=== PATIENT | male | born 1930 | race Caucasian/White ===

== ENCOUNTER 2016-07-06 18:47 | Inpatient (IN) | payer MEDICARE ==
[2016-07-06] MEDS ORDERED: Acetaminophen TAB* 325 MG PO ONE (19:18)
[2016-07-06] MEDS ORDERED: NS 0.9% 1000 ML* 1,000 ML IV ONE (19:18)
[2016-07-06] MEDS ORDERED: Acetaminophen TAB* 325 MG ONE (19:31)
--- NOTE | 2016-07-06 20:27 | ED ---
Yusef Baca Billy, scribed for Donnie Sterling MD on 07/06/16 at 1930 . Influenza-Like Illness - HPI Summary HPI Summary: Patient is an 86 year-old male coming to [facility] with flu-like symptoms since this afternoon. Patient complains of general weakness, fatigue, dry cough, nausea, and vomiting. His daughter, who is in the room with him, also states that he had one isolated episode of loose stools. EMS reports that he had a temperature of 102.1F en route. Nothing has made his symptoms better or worse today. Patient is A&Ox3. He denies any urinary symptoms at this time. Patient was seen for an [place]ogram [place] [facility] [place]. - History of Current Complaint Chief Complaint: EDFluSymptoms Time Seen by Provider: 07/06/16 19:17 Hx Obtained From: Patient Onset/Duration: Gradual Onset, Lasting Hours, Still Present Severity: Moderate Associated Signs & Symptoms: Fever, Cough, Vomiting, Diarrhea - Allergy/Home Medications Allergies/Adverse Reactions: Allergies Allergy/AdvReac Type Severity Reaction Status Date / Time Allopurinol [From Zyloprim] Allergy Intermediate Rash Verified 09/08/15 06:54 Esomeprazole [From Nexium] Allergy Intermediate Rash Verified 09/08/15 06:54 Spironolactone Allergy Unknown Verified 09/08/15 06:54 Reaction Details PMH/Surg Hx/FS Hx/Imm Hx Endocrine/Hematology History: Reports: Hx Anticoagulant Therapy - PRADAXA, Hx Anemia - LOW IRON ON MEDICATION Denies: Hx Diabetes Cardiovascular History: Reports: Hx Auto Implanted Cardiovert Defib - BY DR BHANDARI/BERTHA [place] [facility] Hx Congestive Heart Failure - OXYGEN 2 LITERS VIA N/C CONTINOUSLY, Hx Coronary Artery Disease, Hx Pacemaker/ICD, Hx Valvular Heart Disease - TRICUSPID INSUFFICENCY, Other Cardiovascular Problems/Disorders - CHF Denies: Hx Hypertension, Hx Syncope - NEAR SYNCOPE Comment Only: Hx Hypotension - TACHY-FABRICIO SYNDROME, AFIB. Respiratory History: Reports: Other Respiratory Problems/Disorders - OXYGEN AT 2 LITERS VIA NASAL CANNULA R/T CHF GI History: Reports: Other GI Disorders - DOUDINAL ULCERS, ON PROTONIX History: Denies: Hx Renal Disease Musculoskeletal History: Reports: Hx Arthritis - BILATERAL HANDS AND FINGERS, Hx Orthopedic Injury - RIGHT FOOT BOOT Sensory History: Reports: Hx Contacts or Glasses Denies: Hx Hearing Aid Opthamlomology History: Reports: Hx Contacts or Glasses Neurological History: Reports: Hx Transient Ischemic Attacks (TIA) - Cancer History Cancer Type, 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) Hx Chemotherapy: Yes - ORAL Hx Radiation Therapy: Yes - MULTIPLE MYLOMA 2001 - Surgical History Surgery Procedure, Year, and Place: PACEMAKER/DEFIBULATOR Hx Anesthesia Reactions: No Infectious Disease History: Denies: Traveled Outside the [place] in Last 30 Days - Family History Known Family History: Negative: Cardiac Disease - Social History Alcohol Use: Daily Alcohol Amount: 1 BEER Substance Use Type: Reports: None Smoking Status (MU): Former Smoker Type: Cigarettes Amount Used/How Often: 2 PPD FOR ABOUT 10 YEARS Length of Time of Smoking/Using Tobacco: 10 YEARS Have You Smoked in the Last Year: No Review of Systems Positive: Fever Positive: Cough Positive: Vomiting, Diarrhea, Nausea Negative: dysuria, frequency All Other Systems Reviewed And Are Negative: Yes Physical Exam Triage Information Reviewed: Yes Vital Signs On Initial Exam: Initial Vital Signs Temp 102 F 07/06/16 19:21 Pulse 74 07/06/16 19:21 Resp 18 07/06/16 19:21 BP 128/46 07/06/16 19:21 Pulse Ox 95 07/06/16 19:21 Vital Signs Reviewed: Yes Appearance: Positive: No Pain Distress, Ill-Appearing Skin: Positive: Warm ENT: Positive: Pharynx normal Neck: Positive: Supple Respiratory/Lung Sounds: Positive: Clear to Auscultation, Breath Sounds Present Cardiovascular: Positive: RRR Abdomen Description: Positive: Soft Bowel Sounds: Positive: Present Musculoskeletal: Positive: Strength/ROM Intact Neurological: Positive: Sensory/Motor Intact, Alert, Oriented to Person Place, Time Psychiatric: Positive: Affect/Mood Appropriate Diagnostics - Vital Signs Vital Signs Temp Pulse Resp BP Pulse Ox 07/06/16 19:21 102 F 74 18 128/46 95 - Laboratory Result Diagrams: 07/06/16 20:20 07/06/16 20:20 Lab Statement: Any lab studies that have been ordered have been reviewed, and results considered in the medical decision making process. - Radiology CXR Radiology Interpretation Completed By: Radiologist - NO ACTIVE DISEASE. ENLARGED CORRECT SILHOUETTE WITH POSTSURGICAL CHANGE. Flu Symptom Course/Dx - Diagnoses Provider Diagnoses: Febrile illness, acute - Physician Notifications Discussed Care Of Patient With: Dr. Manzano (hospitalist) @ 2100: accepts admission Instructed by Provider To: Admit As Inpatient Discharge - Discharge Plan Condition: Fair Disposition: ADMITTED TO [facility] The documentation as recorded by the Yusef engle Billy accurately reflects the service I personally performed and the decisions made by me, Donnie Sterling MD.
--- NOTE | 2016-07-06 20:29 | RAD ---
INDICATION: Fever COMPARISON: Chest x-ray July 06, 2013 TECHNIQUE: PA and lateral dual-energy views were obtained. FINDINGS: Bones/Soft Tissues: There are no acute bony findings. There is a left-sided cardiac pacemaker/defibrillator Cardiomediastinal: The cardiac silhouette is mildly enlarged but unchanged. Lungs: There are no infiltrates. Pleura: There are no pleural effusions. Other: None IMPRESSION: NO ACTIVE DISEASE. ENLARGED CORRECT SILHOUETTE WITH POSTSURGICAL CHANGE.
[2016-07-06 20:33] LABS: Hematocrit 35 % (42-52); Hemoglobin 11.3 g/dl (14.0-18.0); Mean Corpuscular HGB Conc 33 g/dl (31-36); Mean Corpuscular Hemoglobin 31 pg (27-31); Mean Corpuscular Volume 95 fL (80-94); Mean Platelet Volume 9 um3 (7.4-10.4); Red Blood Count 3.67 10^6/ul (4.0-5.4); Red Cell Distribution Width 14 % (10.5-15); White Blood Count 21.2 10^3/ul (3.5-10.8)
[2016-07-06 20:50] LABS: Albumin 4.1 g/dL (3.2-5.2); BUN/Creatinine Ratio 19.7 (8-20); Calcium 9.6 mg/dL (8.6-10.3); Globulin 3.6 g/dL (2-4); Magnesium 1.5 mg/dL (1.9-2.7); Potassium 4.3 mmol/L (3.5-5.0); Total Bilirubin 1.1 mg/dL (0.2-1.0); Total Protein 7.7 g/dL (6.4-8.9)
[2016-07-06 21:07] LABS: TSH (Thyroid Stimulating Horm) 8.23 mcIU/mL (0.34-5.60)
--- NOTE | 2016-07-06 21:47 | HP ---
H&P (Free Text) History and Physical: PCP: Angie Santos MD Date/Time of Evaluation: 07/06/2016 2215 CC: fever, generalized weakness HPI: Mr Barton is an 86YO male HX PAOD who underwent L radial approach LLE angiography this AM via Adrianna Samayoa MD interventional cardiology. He was discharged in good health around noon arriving home after picking up a new prescription for atorvastatin 80mg daily. Family reports he was fine at that time. However, they found him to be febrile at 102F with generalized weakness and unsteady gait around 1700. Actual time of onset is unclear. He reports subjective F/C with rigors, mild nausea with small volume emesis, and a single loose stool, but denies cough, congestion, sore throat, earache, myalgias, headache, B/U/F of urine, black or bloody content to emesis/stool, or other issues. Evaluation confirms fever at 38.8C. WBCs are 21k (up from 9k yesterday) 92.5% neutrophils, stable CKD stg 3b, magnesium 1.5, & TSH 8.2. CXR is negative. PMedHx multiple myeloma (~10years in remission) AFIB on dabigatran CAD CKD stg 3b PAOD w/ planned angioplasty/stent to LLE next week for non-healing L plantar wound TIA BLE peripheral neuropathy GERD Allergies Allopurinol [From Zyloprim] Allergy (Intermediate, Verified 09/08/15 06:54) Rash Esomeprazole [From Nexium] Allergy (Intermediate, Verified 09/08/15 06:54) Rash Spironolactone Allergy (Verified 09/08/15 06:54) Unknown Reaction Details Ambulatory Orders Carvedilol TAB* [Coreg TAB*] 6.25 mg PO BID 01/18/13 Cholecalciferol [Vitamin D] 1,000 unit PO DAILY 01/18/13 Furosemide TAB* [Lasix TAB*] 40 mg PO 1200 01/18/13 Pantoprazole TAB (NF) [Protonix TAB (NF)] 40 mg PO QAM 01/18/13 Pregabalin CAP(*) [Lyrica CAP(*)] 75 mg PO TID 01/18/13 Iron Polysaccharide Complex- [Iferex 150 Forte 150-25-1 mg-Mcg-mg] 150 mg PO 1200 09/01/15 Potassium Chlor TAB* [Klor Con ER TAB 10 MEQ*] 10 meq PO DAILY 09/01/15 Diphenhydramine-Acetaminophen [Tylenol Pm Extra Strength 500-25 mg] 1 tab PO QPM 09/08/15 Atorvastatin* [Lipitor*] 80 mg PO DAILY #90 tab 07/06/16 Dabigatran CAP(NF) [Pradaxa CAP(NF)] 75 mg PO BID 07/06/16 PSurgHx pacerAICD placement L radial approach LLE angioplasty 07/06/2016 OU cataract extraction SocHx: quit smoking 2PPD ~50years ago w/ a >30PYHX; , lives alone; 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; full code status FamHx: positive for HTN, HLD ROS: as above, otherwise reviewed and all were negative Constitutional: NAD, normally developed, well-nourished elderly white male vitals: Vital Signs Temp 38.8 C 07/06/16 19:21 Pulse 74 07/06/16 21:00 Resp 18 07/06/16 19:21 BP 114/52 07/06/16 19:34 Pulse Ox 96 07/06/16 21:00 Intake & Output 07/05/16 07/06/16 07/06/16 23:59 11:59 23:59 Weight 68.039 kg HEENM: atraumatic; sclera/conjunctiva: non-icteric/clear; hearing: clinically intact; oropharynx: clear, mucosa moist Neck: soft tissue: non-tender; thyroid: normal Pulmonary: clear to auscultation bilaterally, good aeration, no accessory muscle use CV: RR/RR, normal S1S2, no carotid bruit, no jugular venous distention, 2+ B DP/ PT, no edema Abdominal: soft, non-distended, non-tender, no rebound/guarding/rigidity, normoactive bowel sounds, no hepatosplenomegaly or masses, no costovertebral angle tenderness Musculoskeletal: general: grossly intact; gait: unsteady Integumental: L foot with soft cast in place from wound clinic, after removal an ~7mm full thickness ulcer is noted at the distal 1st metatarsal without malodor, erythema, tenderness, induration, or other sign of active infection Psychiatric orientation: AA&O to PPS affect: calm mood: cooperative eye contact: good content: unreliable to timing of events memory: seems foggy regarding today's events responses: timely insight: fair Testing: Lab Results 07/06/16 07/06/16 07/06/16 Range/Units 20:20 20:20 20:20 WBC 21.2 H (3.5-10.8) 10^3/ul RBC 3.67 L (4.0-5.4) 10^6/ul Hgb 11.3 L (14.0-18.0) g/dl Hct 35 L (42-52) % MCV 95 H (80-94) fL MCH 31 (27-31) pg MCHC 33 (31-36) g/dl RDW 14 (10.5-15) % Plt Count 180 (150-450) 10^3/ul MPV 9 (7.4-10.4) um3 Neut % (Auto) 92.5 H (38-83) % Lymph % (Auto) 1.9 L (25-47) % Bosque % (Auto) 5.1 (1-9) % Eos % (Auto) 0.1 (0-6) % Baso % (Auto) 0.4 (0-2) % Absolute Neuts (auto) 19.6 H (1.5-7.7) 10^3/ul Absolute Lymphs (auto) 0.4 L (1.0-4.8) 10^3/ul Absolute Monos (auto) 1.1 H (0-0.8) 10^3/ul Absolute Eos (auto) 0 (0-0.6) 10^3/ul Absolute Basos (auto) 0.1 (0-0.2) 10^3/ul Absolute Nucleated RBC 0.01 10^3/ul Nucleated RBC % 0 Sodium 139 (133-145) mmol/L Potassium 4.3 (3.5-5.0) mmol/L Chloride 105 (101-111) mmol/L Carbon Dioxide 24 (22-32) mmol/L Anion Gap 10 (2-11) mmol/L BUN 31 H (6-24) mg/dL Creatinine 1.57 H (0.67-1.17) mg/dL Est GFR ( Amer) 54.0 (>60) Est GFR (Non-Af Amer) 42.0 (>60) BUN/Creatinine Ratio 19.7 (8-20) Glucose 109 H (70-100) mg/dL Lactic Acid 1.6 (0.5-2.0) mmol/L Calcium 9.6 (8.6-10.3) mg/dL Magnesium 1.5 L (1.9-2.7) mg/dL Total Bilirubin 1.10 H (0.2-1.0) mg/dL AST 20 (13-39) U/L ALT 13 (7-52) U/L Alkaline Phosphatase 63 (34-104) U/L Total Protein 7.7 (6.4-8.9) g/dL Albumin 4.1 (3.2-5.2) g/dL Globulin 3.6 (2-4) g/dL Albumin/Globulin Ratio 1.1 (1-3) TSH 8.23 H (0.34-5.60) mcIU/mL Influenza A (Rapid) (Negative) Influenza B (Rapid) (Negative) 07/06/16 Range/Units 21:21 WBC (3.5-10.8) 10^3/ul RBC (4.0-5.4) 10^6/ul Hgb (14.0-18.0) g/dl Hct (42-52) % MCV (80-94) fL MCH (27-31) pg MCHC (31-36) g/dl RDW (10.5-15) % Plt Count (150-450) 10^3/ul MPV (7.4-10.4) um3 Neut % (Auto) (38-83) % Lymph % (Auto) (25-47) % Bosque % (Auto) (1-9) % Eos % (Auto) (0-6) % Baso % (Auto) (0-2) % Absolute Neuts (auto) (1.5-7.7) 10^3/ul Absolute Lymphs (auto) (1.0-4.8) 10^3/ul Absolute Monos (auto) (0-0.8) 10^3/ul Absolute Eos (auto) (0-0.6) 10^3/ul Absolute Basos (auto) (0-0.2) 10^3/ul Absolute Nucleated RBC 10^3/ul Nucleated RBC % Sodium (133-145) mmol/L Potassium (3.5-5.0) mmol/L Chloride (101-111) mmol/L Carbon Dioxide (22-32) mmol/L Anion Gap (2-11) mmol/L BUN (6-24) mg/dL Creatinine (0.67-1.17) mg/dL Est GFR ( Amer) (>60) Est GFR (Non-Af Amer) (>60) BUN/Creatinine Ratio (8-20) Glucose (70-100) mg/dL Lactic Acid (0.5-2.0) mmol/L Calcium (8.6-10.3) mg/dL Magnesium (1.9-2.7) mg/dL Total Bilirubin (0.2-1.0) mg/dL AST (13-39) U/L ALT (7-52) U/L Alkaline Phosphatase (34-104) U/L Total Protein (6.4-8.9) g/dL Albumin (3.2-5.2) g/dL Globulin (2-4) g/dL Albumin/Globulin Ratio (1-3) TSH (0.34-5.60) mcIU/mL Influenza A (Rapid) Negative (Negative) Influenza B (Rapid) Negative (Negative) CXR, personally reviewed: IMPRESSION: NO ACTIVE DISEASE. ENLARGED CORRECT SILHOUETTE WITH POSTSURGICAL CHANGE. Impression: 86M presenting w/i 12hours of LLE angiography via L radial approach with fever 102F and generalized weakness, no source identified, flu negative DIAGNOSIS & PLAN Primary fever & generalized deconditioning : not meeting sepsis critieria : clinically appears reasonably good : will hold ABX and obtain CXs : ? non-influenza viral etiology : supplemental oxygen : IVFs : PT evaluation in AM 2nd borderline gait stability : supportive care Secondary multiple myeloma (~10years in remission) : no acute issues AFTIB : continue dabigatran & carvedilol CAD : continue carvedilol : hold furosemide in current setting CKD stg 3b : periodic monitoring particularly given dye-load today PAOD : planned angioplasty/stent to LLE next week for non-healing L plantar ulcer : continue atorvastatin : heart healthy diet BLE peripheral neuropathy : continue pregabalin GERD : continue pantoprazole Ambulatory Orders Dabigatran CAP(NF) [Pradaxa CAP(NF)] 75 mg PO BID 07/06/16 Admission Rational: observation for fever, generalized weakness, & leukocytosis DVTp: dabigatran Code Status: full HCP: daughter
[2016-07-06] MEDS ORDERED: Collagenase 250 MG/GM OINT* 30 GM TOPICAL ONE (23:00)
[2016-07-06] MEDS ORDERED: Ondansetron INJ* 2 MG/ML VIAL IV PRN (23:25)
[2016-07-06] MEDS ORDERED: Albuterol 2.5 MG/3 ML NEB.SOL* (0.083%) INH PRN (23:25)
[2016-07-06] MEDS ORDERED: traMADol TAB* 50 MG PO PRN (23:25)
[2016-07-06] MEDS ORDERED: CMCS: Melatonin (NF) 3 MG TAB PO PRN (23:25)
[2016-07-06] MEDS ORDERED: Magnesium Sulfate 2 GM IV* 2 GM/50 ML BAG IVPB ONE (23:25)
[2016-07-06] MEDS ORDERED: NS 0.9% 1000 ML* 1,000 ML IV SCH (23:30)
[2016-07-07] MEDS: Pregabalin CAP(*) 25 MG PO SCH ×4 (00:52→20:29)
[2016-07-07] MEDS: Acetaminophen TAB* 325 MG PO PRN ×2 (00:52→20:31)
[2016-07-07] MEDS: diPHENhydraMINE PO* 25 MG PO SCH ×2 (01:46→20:32)
[2016-07-07 06:56] LABS: Hematocrit 29 % (42-52); Hemoglobin 9.6 g/dl (14.0-18.0); Mean Corpuscular HGB Conc 33 g/dl (31-36); Mean Corpuscular Hemoglobin 31 pg (27-31); Mean Corpuscular Volume 94 fL (80-94); Mean Platelet Volume 8 um3 (7.4-10.4); Red Blood Count 3.08 10^6/ul (4.0-5.4); Red Cell Distribution Width 14 % (10.5-15); White Blood Count 13.8 10^3/ul (3.5-10.8)
[2016-07-07 07:12] LABS: BUN/Creatinine Ratio 20.9 (8-20); Calcium 8.7 mg/dL (8.6-10.3); EGFR African American 53.6 (>60); EGFR Non-African American 41.7 (>60); Potassium 4.1 mmol/L (3.5-5.0)
[2016-07-07] MEDS: Cholecalciferol TAB* 1000 UNITS PO SCH (07:59)
[2016-07-07] MEDS: Atorvastatin* 80 MG TAB PO SCH (07:59)
[2016-07-07] MEDS: CMCS: Pantoprazole TAB (NF) 40 MG TAB PO SCH (07:59)
[2016-07-07] MEDS ORDERED: Carvedilol TAB* 6.25 MG PO SCH (08:00)
[2016-07-07 08:26] LABS: Urine Bacteria Absent (Absent); Urine Bilirubin Negative (Negative); Urine Glucose Negative (Negative); Urine Nitrite Negative (Negative)
[2016-07-07] MEDS ORDERED: IRON POLYSACCHARIDE COMPLEX VI PO SCH (12:00)
--- NOTE | 2016-07-07 13:48 | PN ---
Subjective Date of Service: 07/07/16 Interval History: pt feels back to baseline. Rigors and fever from last night did not recur. Objective Active Medications: Acetaminophen (Tylenol Tab*) 650 mg PO Q6H PRN PRN Reason: FEVER/PAIN Last Admin: 07/07/16 00:52 Dose: 650 mg Albuterol (Ventolin 2.5 Mg/3 Ml Neb.Allison*) 2.5 mg INH Q2H PRN PRN Reason: SOB/WHEEZING Atorvastatin Calcium (Lipitor*) 80 mg PO DAILY [facility] Last Admin: 07/07/16 07:59 Dose: 80 mg Carvedilol (Coreg Tab*) 3.125 mg PO BID WITH MEALS [facility] Cholecalciferol (Vitamin D Tab*) 1,000 units PO DAILY [facility] Last Admin: 07/07/16 07:59 Dose: 1,000 units Dabigatran (Pradaxa Cap(Nf)) 75 mg PO BID [facility] Diphenhydramine HCl (Benadryl Po*) 25 mg PO BEDTIME [facility] Last Admin: 07/07/16 01:46 Dose: 25 mg Melatonin (Melatonin (Nf)) 3 mg PO BEDTIME PRN; Protocol PRN Reason: Sleep Ondansetron HCl (Zofran Inj*) 4 mg IV Q6H PRN PRN Reason: NAUSEA Pantoprazole Sodium (Protonix Tab (Nf)) 40 mg PO DAILY@0730 [facility] Last Admin: 07/07/16 07:59 Dose: 40 mg Pregabalin (Lyrica Cap(*)) 75 mg PO TID [facility] Last Admin: 07/07/16 07:59 Dose: 75 mg Tramadol HCl (Ultram*) 50 mg PO Q6H PRN PRN Reason: PAIN Vital Signs 07/06/16 07/06/16 07/06/16 22:25 23:00 23:07 Temperature 100 F Pulse Rate 65 64 Respiratory Rate Blood Pressure 101/47 (mmHg) O2 Sat by Pulse 96 98 Oximetry 07/07/16 07/07/16 07/07/16 00:30 00:43 00:52 Temperature 97.9 F 99 F Pulse Rate 60 Respiratory 18 18 Rate Blood Pressure 120/62 (mmHg) O2 Sat by Pulse 98 Oximetry 07/07/16 07/07/16 07/07/16 00:55 01:46 02:52 Temperature 97.9 F Pulse Rate 60 Respiratory 18 18 16 Rate Blood Pressure 120/62 (mmHg) O2 Sat by Pulse 98 Oximetry 07/07/16 07/07/16 07/07/16 03:46 04:27 05:03 Temperature 98.5 F Pulse Rate 60 Respiratory 16 16 Rate Blood Pressure 98/39 118/58 (mmHg) O2 Sat by Pulse 100 Oximetry 07/07/16 07/07/16 07/07/16 07:27 07:59 09:48 Temperature 97.6 F Pulse Rate 66 61 Respiratory 17 14 14 Rate Blood Pressure 122/39 (mmHg) O2 Sat by Pulse 100 98 Oximetry 07/07/16 09:59 Temperature Pulse Rate Respiratory 14 Rate Blood Pressure (mmHg) O2 Sat by Pulse Oximetry Oxygen Devices in Use Now: Nasal Cannula - at 2 L Appearance: 86 yo M in NAd, aAOx3 Eyes: No Scleral Icterus, PERRLA Ears/Nose/Mouth/Throat: NL Teeth, Lips, Gums, Mucous Membranes Moist Neck: NL Appearance and Movements; NL JVP, Trachea Midline Respiratory: Symmetrical Chest Expansion and Respiratory Effort, Clear to Auscultation Cardiovascular: RRR, - - 2/6 LUAN at apex Abdominal: NL Sounds; No Tenderness; No Distention, No Hepatosplenomegaly Lymphatic: No Cervical Adenopathy Extremities: No Edema, No Clubbing, Cyanosis, - - no palpable pedal pulses, feet warm, delayed cap refill b/l Skin: No Nodules or Sclerosis, - - R bottom of foot at athe base of R gret toe- ulcer at 2 cm in diam, crater like with slough at the bottom , stage 3, no discharge, no cellulitis noted Neurological: Alert and Oriented x 3, NL Muscle Strength and Tone Result Diagrams: 07/07/16 06:44 07/07/16 06:44 Assess/Plan/Problems-Billing Assessment: 86 yo M with h/o MM in remission, cardiomyopathy, on at 2 L continuously, A. fib on Pradaxa, pacer, CKD stage 3, PAD who had an angiogram performed by Dr. Samayoa on LLE via L radial approach on 07/06/16 and several hours later developed rigors, fever of 102, and generalized weakness. - Patient Problems (1) SIRS (systemic inflammatory response syndrome) Comment: so far no source of infection is identified. Blood cx will result after 9 PM today. Leukocytosis resolving spontaneusly without any antibiotics. D/w Dr. Samayoa - pt could have had an atypical allergic reaction to contrast. right now asymptomatic. Will need to stay one more night to confirm blood cx are negative prior to discharge. will also f/u with another CBC in aM. High procalcitonin level makes bacterial infection likely. R foot ulcer does not appear infected. (2) CKD (chronic kidney disease) stage 3, GFR 30-59 ml/min Comment: creat at baseline (3) H/O atrial fibrillation without current medication Comment: currently in regular rythm cont Pradaxa (4) PAD (peripheral artery disease) Comment: planned for angioplasty with Dr. Samayoa next week. (5) TSH elevation Comment: will check FT4 and T3 in AM to eval for hypothyroidism. (6) DVT prophylaxis Comment: Pradaxa Status and Disposition: OBV will be changed to inpatient. Pt needs another 24H of monitoring , awaiting a result of blood cx.
[2016-07-07] MEDS: Carvedilol TAB* 6.25 MG PO SCH (17:19)
[2016-07-07] MEDS ORDERED: DIPHENHYDRAMINE ACETAMINOPHEN PO SCH (18:00)
[2016-07-07] MEDS: CMC:Dabigatran CAP(NF) 75 MG CAP PO SCH (20:32)
[2016-07-08 05:59] LABS: Hematocrit 29 % (42-52); Hemoglobin 9.6 g/dl (14.0-18.0); Mean Corpuscular HGB Conc 33 g/dl (31-36); Mean Corpuscular Hemoglobin 31 pg (27-31); Mean Corpuscular Volume 95 fL (80-94); Mean Platelet Volume 9 um3 (7.4-10.4); Red Blood Count 3.06 10^6/ul (4.0-5.4); Red Cell Distribution Width 14 % (10.5-15); White Blood Count 12.5 10^3/ul (3.5-10.8)
[2016-07-08 06:29] LABS: Free T4 0.85 ng/dL (0.61-1.12)
[2016-07-08 07:57] LABS: Total T3 0.53 ng/mL (0.87-1.78)
[2016-07-08] MEDS: Carvedilol TAB* 6.25 MG PO SCH (08:28)
[2016-07-08] MEDS: CMCS: Pantoprazole TAB (NF) 40 MG TAB PO SCH (08:28)
[2016-07-08] MEDS: CMC:Dabigatran CAP(NF) 75 MG CAP PO SCH (08:29)
[2016-07-08] MEDS: Cholecalciferol TAB* 1000 UNITS PO SCH (08:29)
[2016-07-08] MEDS: Atorvastatin* 80 MG TAB PO SCH (08:29)
[2016-07-08] MEDS: Pregabalin CAP(*) 25 MG PO SCH (08:29)
[2016-07-08 08:33] VITALS: BP 128/56
--- NOTE | 2016-07-09 00:35 | DS ---
DISCHARGE SUMMARY: DATE OF ADMISSION: DATE OF DISCHARGE: 07/08/16 PRIMARY CARE PROVIDER: Dr. Santos. DISCHARGE DIAGNOSES: 1. Systemic inflammatory response syndrome with fever of 102 as well as marked leukocytosis of 21,000 with no infectious source identified, suspect an atypical reaction to IV contrast received on 07/06/16 during angiogram. 2. Mild hypothyroidism. SECONDARY DIAGNOSES: 1. History of multiple myeloma in remission. 2. History of atrial fibrillation, on Pradaxa. 3. History of coronary artery disease. 4. History of chronic kidney disease stage 3. 5. History of peripheral artery disease with planned angioplasty to left lower extremity next week by Dr. Samayoa. 6. History of transient ischemic attack. 7. History of bilateral peripheral neuropathy. 8. Gastroesophageal reflux disease. MEDICATIONS AT DISCHARGE: Include: 1. Coreg 6.25 mg b.i.d. 2. Vitamin D 1000 units daily. 3. Furosemide 40 mg daily. 4. Protonix 40 mg daily. 5. Lyrica 75 mg 3 times a day. 6. Niferex-150 Forte 150 mg daily. 7. Potassium chloride 10 mEq daily. 8. Tylenol PM extra strength 1 tab q.p.m. p.r.n. 9. Lipitor 80 mg daily. 10. Pradaxa 75 mg b.i.d. 11. Synthroid 25 microgram daily, which is a new medication. LABORATORY DATA AND STUDIES DURING THE HOSPITAL STAY: Included from 07/08/16, white blood cell count was 12.5, hemoglobin 9.6, hematocrit of 29, and platelets of 112. The patient's total white blood cell count was noted to be 21 ,000 on 07/06/16. On 07/07/16, sodium of 138, potassium of 4.1, chloride 109, carbon dioxide 24, BUN 33, creatinine 1.58. Thyroid function studies showed TSH total of 8.23, free T4 of 0.85, total T3 of 0.53. Microbiology studies showed blood cultures that were negative to the date of discharge. Flu test was negative on admission. Urinalysis was unremarkable apart from hyaline casts and trace protein. Portable chest x-ray obtained on admission, impression "no active disease, enlarged cardiac silhouette with post surgical change". HOSPITALIZATION COURSE: Bret Barton is an 86-year-old male with history of unknown healing ulcer on the sole of his right foot. The patient also is noted to have poor peripheral pulses and had an angiogram performed by Dr. Samayoa, which was diagnostic on 07/06/16. Post angiogram, he was discharged home and within a few hours, developed rigorous temperature of 102 degrees. He came in to the ER for evaluation where he was noted to have marked leukocytosis with 21,000 total white blood cells. The differential included 92% of neutrophils and 1.9 lymphocytes. His initial infectious workup yielded no positive results. His blood cultures were negative to date in 24 hours. His urinalysis was unremarkable. His chest x-ray was unremarkable either as mentioned above. The patient was not treated with antibiotics, but he did receive a liter of intravenous saline. His fever did not recur and his leukocytosis was slowly resolving as above mentioned with only supportive treatment. The patient felt back to baseline within 24 hours and had no further complaints apart from the chronic nonhealing ulcer on the bottom of his right foot. At this point, the suspicion is that patient most likely had an untypical reaction to the IV contrast. The case was discussed with Dr. Samayoa. The patient most likely will receive premedication for his therapeutic angiogram that is planned next week with Dr. Samayoa. PHYSICAL EXAMINATION AT THE TIME OF DISCHARGE: Blood pressure 128/56, heart rate of 71 and regular, respiratory rate of 16, oxygen saturation 99% on 2 L of oxygen nasal cannula, temperature 97.8. General: The patient is a very pleasant 86-year- old male, who is in no acute distress. Alert, awake, and oriented x3. HEENT: Head atraumatic, normocephalic. Eyes: Pupils equal, reactive to light and accommodation. Oropharynx clear. Mucosa moist. Neck: Supple, no JVD. No bruits bilaterally. Cardiovascular: Regular rate and rhythm with 2/6 systolic ejection murmur noted with auscultation of the apex. Respiratory: Clear to auscultation bilaterally. Abdomen: Soft, nontender. Bowel sounds present in all quadrants. Extremities: There are poorly palpable bilateral pedal pulses. The capillary refill is delayed. There is no clubbing and no cyanosis. Skin: On the bottom of the right foot, just at the base of the right great toe, the patient has an ulceration of approximately 2 cm in diameter, approximately half a cm deep, crater like with slough at the bottom. There is no cellulitis noted on the surrounding skin. Neuro Evaluation: Cranial nerves II through XII are grossly intact. Motor strength is 5/5 bilaterally. Speech clear. In addition to the above-mentioned, the patient's thyroid function studies indicated mild hypothyroidism. That was discussed with the patient and the patient agrees to starting low dose of thyroid supplementation. He is going to be started on Synthroid 25 micrograms daily. In regards to wound care monitoring, the patient is today scheduled for wound care center appointment with Dr. Jean-Baptiste to which he is going to go right after this discharge. Please note that this is a short summary of the patient's hospital stay. Please refer to further medical records for details. TIME SPENT: Approximately 40 minutes was spent on the patient's discharge. CC: Dr. Samayoa; Dr. Santos; Dr. Jean-Baptiste; Dr. Hernandez * [id number]/CPS #: [id number] [id number]
== END 2016-07-08 12:30 | disposition home or self-care (01) | DRG 872 ==
LOC: ED 18:47 → MED 22:24 → OBSVTOIN 07-07 19:24
PROVIDERS: ADMIT Hospitalist; ATTEND Internal Medicine
DX: R65.10 Systemic inflammatory response syndrome (SIRS) of non-infectious origin without acute organ dysfunction (principal); I50.9 Heart failure, unspecified; I48.91 Unspecified atrial fibrillation; Z99.81 Dependence on supplemental oxygen; K26.9 Duodenal ulcer, unspecified as acute or chronic, without hemorrhage or perforation; N18.3 Chronic kidney disease, stage 3 (moderate); G62.9 Polyneuropathy, unspecified; L97.519 Non-pressure chronic ulcer of other part of right foot with unspecified severity; C90.01 Multiple myeloma in remission; I25.10 Atherosclerotic heart disease of native coronary artery without angina pectoris; M13.842 Other specified arthritis, left hand; M13.841 Other specified arthritis, right hand; I77.9 Disorder of arteries and arterioles, unspecified; K21.9 Gastro-esophageal reflux disease without esophagitis; I73.9 Peripheral vascular disease, unspecified; E03.9 Hypothyroidism, unspecified; T50.8X5A Adverse effect of diagnostic agents, initial encounter; Z88.8 Allergy status to other drugs, medicaments and biological substances; Z95.810 Presence of automatic (implantable) cardiac defibrillator; Z86.73 Personal history of transient ischemic attack (TIA), and cerebral infarction without residual deficits; Z92.21 Personal history of antineoplastic chemotherapy; Z92.3 Personal history of irradiation; Z72.89 Other problems related to lifestyle; Z87.891 Personal history of nicotine dependence; Z82.49 Family history of ischemic heart disease and other diseases of the circulatory system; Z98.42 Cataract extraction status, left eye; Z98.41 Cataract extraction status, right eye; Z83.49 Family history of other endocrine, nutritional and metabolic diseases; Z79.01 Long term (current) use of anticoagulants
CPT/HCPCS: 36415; 71020; 80048; 80053; 81003; 81015; 82550; 83605; 83735; 84145; 84439; 84443; 84479; 85025; 85027; 87040; 87502; 94760; A9270-GY; C1887; G0378; G8978-GP-CI; G8979-GP-CI; G8980-GP-CI; J1644; J2250; J3010; J3475

== ENCOUNTER 2016-07-22 11:05 | Observation (INO) | payer MEDICARE ==
[2016-07-22] MEDS ORDERED: Clopidogrel TAB* 300 MG ONE (11:28)
[2016-07-22] MEDS ORDERED: methylPREDNISolone SOD SUCC* 125 MG 2 ML VIAL ONE (11:28)
[2016-07-22] MEDS ORDERED: diPHENhydraMINE IV* 50 MG/ML 1 ml VIAL (BENADRYL) ONE (11:29)
[2016-07-22] MEDS ORDERED: Acetylcysteine CAP (RENAL)* 600 MG PO ONE (12:00)
[2016-07-22 12:29] LABS: BUN/Creatinine Ratio 17.9 (8-20); Calcium 9.5 mg/dL (8.6-10.3); EGFR African American 59.2 (>60); Potassium 4.6 mmol/L (3.5-5.0)
[2016-07-22] MEDS ORDERED: methylPREDNISolone SOD SUCC* 40 MG/ML VIAL IV ONE (13:00)
[2016-07-22] MEDS ORDERED: Lidocaine 1% INJ* 10 MG/ML 30 ML SDV ONE (13:16)
[2016-07-22] MEDS ORDERED: fentaNYL* 50 MCG/ML 2 ML VIAL (100 MCG VIAL) ONE (13:16)
[2016-07-22] MEDS ORDERED: Midazolam* 1 MG/ML 5 ML VIAL (5 MG) ONE (13:16)
[2016-07-22] MEDS ORDERED: VERAPAMIL 2.5 MG/ML 4 ML VIAL ONE (13:16)
[2016-07-22] MEDS ORDERED: Heparin 2 UNITS/ML IVPREMIX* 2,000 ML IV ONE (13:16)
[2016-07-22] MEDS ORDERED: nitroGLYCERIN DRIP* 250 ML ONE (13:17)
[2016-07-22] MEDS ORDERED: Iodixanol* (CONTRAST) 320 MG/ML 100 ML SDV ONE (13:32)
[2016-07-22] MEDS ORDERED: Heparin(*) 1000 UNIT/ML 10 ML VIAL CATH LAB IV ONE (14:10)
[2016-07-22] MEDS ORDERED: NS 0.9% 1000 ML* 1,000 ML IV SCH (16:15)
[2016-07-22] MEDS: Aspirin Low Dose CHEW TAB* 81 MG PO SCH (17:17)
[2016-07-22] MEDS: Carvedilol TAB* 6.25 MG PO SCH (17:17)
[2016-07-22] MEDS ORDERED: Latanoprost 0.005%* 2.5 ml BTL BOTH EYES SCH (21:00)
[2016-07-22] MEDS: CMCS: Dabigatran CAP(NF) 75 MG CAP PO SCH (21:01)
[2016-07-22] MEDS: Pregabalin CAP(*) 25 MG PO SCH (21:01)
[2016-07-22] MEDS: Cephalexin CAP* 500 MG PO SCH (21:02)
[2016-07-22] MEDS ORDERED: Calcium Carbonate CHEW TAB* 500 MG (TUMS) PO PRN (22:12)
[2016-07-22] MEDS ORDERED: Al Hydrox/Mg Hydrox/Simet LIQ* 30 ML UDC PO PRN (22:13)
[2016-07-22] MEDS ORDERED: Al Hydrox/Mg Hydrox/Simet LIQ* 30 ML UDC ONE (22:16)
[2016-07-23] MEDS ORDERED: Levothyroxine TAB* 25 MCG TAB PO SCH (06:00)
[2016-07-23 07:01] LABS: Hematocrit 28 % (42-52); Hemoglobin 9.2 g/dl (14.0-18.0); Mean Corpuscular HGB Conc 33 g/dl (31-36); Mean Corpuscular Hemoglobin 31 pg (27-31); Mean Corpuscular Volume 94 fL (80-94); Mean Platelet Volume 9 um3 (7.4-10.4); Red Blood Count 2.95 10^6/ul (4.0-5.4); Red Cell Distribution Width 15 % (10.5-15); White Blood Count 12.8 10^3/ul (3.5-10.8)
--- NOTE | 2016-07-23 07:11 | CATH ---
CC: Dr. Arielle Santos; Dr. Rosa; Dr. Samayoa; [facility] [place] [facility] PERIPHERAL ANGIOGRAM AND INTERVENTIONAL REPORT: DATE OF PROCEDURE: 07/22/16 PRIMARY CARE PHYSICIAN: Dr. Arielle Santos. PROCEDURES: Left femoral artery access antegrade, orbital atherectomy, left posterior tibial and le ft lateral plantar arteries, angioplasty left posterior tibial 2.5 x 100, angioplasty left lateral p lantar 2 x 120, Angio-Seal left common femoral. HISTORY: An 86-year-old male with critical limb ischemia left foot with plantar ulcer, which has fa iled to heal. Diagnostic angiography 2 weeks ago demonstrated high-grade proximal left posterior ti bial stenosis as well as relatively short segment occlusion of the left anterior tibial with distal collateral reconstitution. Several hours post the angiogram, he had a febrile reaction with high wh ite count with negative cultures, without a rash. It was by exclusion diagnosed to be an atypical m anifestation of contrast reaction. For this procedure, he was premedicated with Benadryl and steroi ds. He also has CKD, stage 3, and was pretreated with volume loading and Mucomyst. PROCEDURE ACCESS: Left common femoral artery with ultrasound guidance sheath, 5 Zimbabwean x 55, which was advanced to the distal popliteal for distal angiography. Angiogram confirmed the same findings a s 2 weeks ago. The ViperWire was advanced easily through the posterior tibial stenosis, a 1.25-mm D iamondback orbital atherectomy catheter was introduced, two passes were performed at low speed in th e proximal posterior tibial, two passes at medium speed, two passes at high speed. A 2.5 x 100 ball oon was then stepwise inflated to 14 atmospheres for a total of 3 minutes. After angiographic asses sment, attention was focused on the foot. Imaging demonstrated severe diffuse stenosis of the latera l plantar branch. This was easily wired with the ViperWire, the orbital atherectomy catheter was ad vanced twice at low speed followed by a 2 x 120 mm balloon stepwise inflation up to nominal for 3 mi nutes. After final angiographic assessment, the left groin was sealed with Angio-Seal. MEDICATIONS: 1. Subcu lidocaine. 2. IV Versed. 3. IV fentanyl. 4. Heparin 6000 units, units. 5. IC nitroglycerin 300 mcg, 200 mcg as well as verapamil and nitroglycerin in the Viper solut ion. HEMODYNAMICS: Initial BP 122/70, final 140/67. Total contrast, Visipaque 80 mL. ANGIOGRAPHY: Sheath entry is in the common femoral above the bifurcation, there is no stenosis. It was redirected from the profunda into the SFA. Previous imaging showed no significant stenosis of the left SFA. He had no inflow disease. The popliteal has irregularity but no significant stenosis . The anterior tibial is again occluded few centimeters from the origin with approximately 80% occl usion, which fills distally by collaterals. The perineal has mild proximal stenosis, probably not s ignificant, the posterior tibial has tandem 80% to 90% proximal stenosis followed by a 50% stenosis before it reconstitutes. The below-knee vessels are heavily calcified. The anterior tibial distall y supplies the dorsalis pedis, which supplies the deep plantar. The peroneal ends at the ankle. Po sterior tibial distribution is seen better after the proximal PT was opened. However, the lateral p lantar is small and diffusely diseased, the medial plantar is small without focal stenosis. After o rbital atherectomy and angioplasty of the proximal posterior tibial, there is no significant residua l stenosis, there is improved antegrade flow. After orbital atherectomy and angioplasty of the late ral plantar as well as the distal posterior tibial and plantar followed by post-dilatation, the late ral plantar has improved luminal caliber and flow, the pedal loop via the deep plantar is patent, al though there may be some stenosis within the deep plantar itself. However, because of excellent per fusion to the forefoot, I did not balloon dilate the pedal loop. CONCLUSION: 1. Successful orbital atherectomy and angioplasty of the proximal left posterior tibial, distal pos terior tibial and plantar and lateral plantar branches with improved forefoot perfusion, intact peda l loop, although there may be residual stenosis within the deep plantar. If he fails to have wound healing, he is a candidate for revascularization of the proximal anterior tibial occlusion. 2. Successful Angio-Seal, left common femoral artery. [id number]/[facility] #: [id number]
[2016-07-23 07:16] LABS: BUN/Creatinine Ratio 21.2 (8-20); Calcium 8.8 mg/dL (8.6-10.3); EGFR African American 56.5 (>60); EGFR Non-African American 43.9 (>60); Potassium 4.4 mmol/L (3.5-5.0)
[2016-07-23 08:16] VITALS: BP 128/59
[2016-07-23] MEDS ORDERED: Potassium Chlor TAB* 10 MEQ TAB.ER PO SCH (08:30)
[2016-07-23] MEDS ORDERED: Clopidogrel TAB* 75 MG PO SCH (09:00)
[2016-07-23] MEDS ORDERED: CMCS: Pantoprazole TAB (NF) 40 MG TAB PO SCH (09:00)
[2016-07-23] MEDS ORDERED: Atorvastatin* 80 MG TAB PO SCH (09:00)
[2016-07-23] MEDS ORDERED: Latanoprost 0.005%* 2.5 ml BTL BOTH EYES SCH (09:00)
[2016-07-23] MEDS: Carvedilol TAB* 6.25 MG PO SCH (09:01)
[2016-07-23] MEDS: CMCS: Dabigatran CAP(NF) 75 MG CAP PO SCH (09:01)
[2016-07-23] MEDS: Cephalexin CAP* 500 MG PO SCH (09:01)
[2016-07-23] MEDS: Aspirin Low Dose CHEW TAB* 81 MG PO SCH (09:01)
[2016-07-23] MEDS: Pregabalin CAP(*) 25 MG PO SCH (09:02)
[2016-07-23] MEDS ORDERED: Furosemide TAB* 20 MG PO SCH (12:00)
--- NOTE | 2016-07-31 05:44 | DS ---
CC: Dr. Santos; Dr. Hernandez; Omaira Samayoa MD DISCHARGE SUMMARY: DATE OF ADMISSION: 07/22/16 DATE OF DISCHARGE: 07/23/16 PRIMARY: Arielle Santos MD [employer] DISPATCHER: Yasmine Hernandez MD DISCHARGE DIAGNOSES: 1. Peripheral arterial disease with critical limb ischemia, left foot. 2. Chronic kidney disease, stage 3. 3. Chronic atrial fibrillation. 4. Anticoagulation. 5. History of transient ischemic attack. PROCEDURES: Left common femoral artery antegrade access, orbital atherectomy, left posterior tibial , plantar and lateral plantar, angioplasty posterior tibial and plantar. CONDITION ON DISCHARGE: Stable. DISCHARGE INSTRUCTIONS: 1. Wound care, shower only for 3 days. 2. Activity, do not life more than 20 pounds for a few days. DISCHARGE MEDICATIONS: 1. Aspirin 81 mg daily. 2. Carvedilol 6.25 b.i.d. 3. Plavix 75 mg daily. 4. Lasix 20 mg 2 daily. 5. Potassium 10 mEq 2 daily. 6. Eye drops. 7. Synthroid 25 mcg daily. 8. Lipitor 10 mg daily. 9. Lyrica. 10. Zaroxolyn 25 mg 3 to 4 times per week. 11. Protonix 40 mg daily. 12. Iron. 13. Pradaxa 75 mg daily. FOLLOWUP: Followup with Dr. Santos as previously and Dr. Samayoa next week. HISTORY: An 86-year-old male with critical limb ischemia of left foot was a nonhealing ulcer on the wound of the foot. Diagnostic angiography demonstrated occlusion of the left anterior tibial as we ll as high-grade stenosis of the left posterior tibial with diffuse distal disease. LABORATORY DATA: His baseline creatinine is 1.45 on the 2nd. Postprocedure on 07/23/16, creatinine 1.51, at his baseline with normal electrolytes. HOSPITAL COURSE: He underwent outpatient angiography with left common femoral artery access with ul trasound guidance for revascularization of the left lower extremity for critical limb ischemia with a nonhealing wound on the left plantar surface. Intervention was performed using a 5-Nepali long sh eath, and orbital atherectomy 1.25 mm with 2 passes at low, 2 at medium, 2 at high speed in the prox imal posterior tibial, and 2 passes at low speed through the very distal posterior tibial, plantar, and lateral plantar branches. This was followed by balloon angioplasty with gradual slow inflation and prolonged inflation of the posterior tibial as well as the plantar branches. The former with a 2.5 mm diameter balloon, the lateral with a 2 mm diameter balloon. Angiographic result was excellen t with improver perfusion to the forefoot with an intact pedal loop, although there maybe some steno sis within the deep plantar artery. I elected not to open the occluded anterior tibial as with stra ight line flow to the sole of the foot, he has a very good chance of healing. If this fails to heal , he will be brought back for left anterior tibial revascularization. Because he had a febrile reac tion 6 hours after the diagnostic angiogram, attributed to an atypical contrast reaction by kaleigh locke, given he had negative cultures; he was kept overnight. This time he had absolutely no fever, no leukocytosis, and no issues. He was discharged the following morning to outpatient followup. [id number]/[facility] #: [id number]
== END 2016-07-23 10:45 | disposition home or self-care (01) ==
LOC: CHICATH 11:05 → SSU 16:10
PROVIDERS: ADMIT Internal Medicine Cardiovascular Disease; ATTEND Internal Medicine Cardiovascular Disease
DX: I73.9 Peripheral vascular disease, unspecified (principal); I50.42 Chronic combined systolic (congestive) and diastolic (congestive) heart failure; N18.3 Chronic kidney disease, stage 3 (moderate); I48.2 Chronic atrial fibrillation; Z79.01 Long term (current) use of anticoagulants; Z95.0 Presence of cardiac pacemaker; E78.00 Pure hypercholesterolemia, unspecified; I42.8 Other cardiomyopathies; I05.9 Rheumatic mitral valve disease, unspecified; I07.8 Other rheumatic tricuspid valve diseases; Z85.79 Personal history of other malignant neoplasms of lymphoid, hematopoietic and related tissues; Z79.899 Other long term (current) drug therapy; Z88.8 Allergy status to other drugs, medicaments and biological substances; Z91.041 Radiographic dye allergy status
CPT/HCPCS: 36415; 80048; 85025; 96360; 96361; A9270-GY; C1724; C1725; C1760; C1769; C1887; C1894; G0378; J1200; J1644; J2001; J2250; J2920; J2930; J3010

== ENCOUNTER 2016-10-13 17:57 | Inpatient (IN) | payer MEDICARE ==
[2016-10-13] MEDS ORDERED: Pantoprazole IV* 40 MG IV ONE (18:53)
[2016-10-13] MEDS ORDERED: Pantoprazole IV* 80 MG in NS 0.9% 250 ML* 250 ML IVPB SCH (19:00)
[2016-10-13] MEDS ORDERED: IDARUCIZUMAB* 2.5 GM/50 ML VIAL IV ONE (19:00)
[2016-10-13 19:53] LABS: Troponin I 0.03 ng/mL (<0.04)
[2016-10-13 20:46] LABS: Hematocrit 19 % (42-52); Mean Corpuscular HGB Conc 32 g/dl (31-36); Mean Corpuscular Hemoglobin 33 pg (27-31); Mean Corpuscular Volume 104 fL (80-94); Mean Platelet Volume 10 um3 (7.4-10.4); Red Blood Count 1.83 10^6/ul (4.0-5.4); Red Cell Distribution Width 23 % (10.5-15); White Blood Count 10.4 10^3/ul (3.5-10.8)
[2016-10-13 20:51] LABS: Comments Flag Yes
[2016-10-13 20:52] LABS: Add Diff/Slide Review? Slide Review Added; Hemoglobin 6.1 g/dl (14.0-18.0)
[2016-10-13 20:53] LABS: Albumin 3.5 g/dL (3.2-5.2); BUN/Creatinine Ratio 51.3 (8-20); Calcium 8.7 mg/dL (8.6-10.3); EGFR African American 55.2 (>60); EGFR Non-African American 42.9 (>60); Globulin 3.1 g/dL (2-4); Potassium 4.2 mmol/L (3.5-5.0); Total Bilirubin 0.9 mg/dL (0.2-1.0); Total Protein 6.6 g/dL (6.4-8.9)
[2016-10-13] MEDS ORDERED: Furosemide IV* 10 MG/ML 2 ML VIAL (20 MG) IV ONE (21:20)
[2016-10-13] MEDS ORDERED: Ondansetron INJ* 2 MG/ML VIAL IV PRN (21:20)
[2016-10-13] MEDS ORDERED: Acetaminophen TAB* 325 MG PO PRN (21:20)
[2016-10-13 21:37] LABS: Hypochromasia 1+; Macrocytosis 1+; Polychromasia 1+
[2016-10-13 21:38] LABS: Basophilic Stippling 1+
[2016-10-13 21:40] LABS: Add Path Review? YES; Schistocytes 1+
[2016-10-13] MEDS: Temazepam CAP* 15 MG PO PRN (23:57)
[2016-10-14] MEDS: Pantoprazole IV* 80 MG in NS 0.9% 250 ML* 250 ML IVPB SCH ×3 (01:50→08:52)
--- NOTE | 2016-10-14 01:57 | HP ---
HISTORY AND PHYSICAL: DATE OF ADMISSION: 10/13/16 PRIMARY CARE PROVIDER: Dr. Santos. ATTENDING PHYSICIAN WHILE IN THE HOSPITAL: Dr. Jatinder Manzano* (report being dictated by Kendall Lugo NP). PEARL DIGGER CHOPPER OPERATOR: Dr. Foote. CHIEF COMPLAINT: 1. Tarry stools. 2. Dyspnea on exertion. 3. Dizziness with position change. HISTORY OF PRESENT ILLNESS: Mr. Barton is an 86-year-old male patient. He has a history of multiple myeloma, atrial fibrillation, coronary artery disease , CKD. He also has a history of peripheral vascular disease, TIA, bilateral lower extremity neuropathies, CHF, and history of GERD. He comes into the ER today stating that over the last couple of weeks, he has noticed that he has been having some black tarry stools and discoloration. He has noticed that today, however, he was concerned because he tried to changes positions, get up from his bed this morning. He did not sleep all that well last night. He felt very faint when he changed position, he felt short of breath. He was concerned. He called his primary and because of the reported tarry stools, he was referred to the ER. He denied any chest pain. Denies any shortness of breath at rest. He says that he has been just feeling weak and tired. He says that he recently couple of weeks ago stopped taking his Protonix and he does have a history of a bleeding ulcer. He was evaluated in the ER. It was noted that his hemoglobin was 6.1. We were asked to evaluate for admission, and he was heme positive. PAST MEDICAL HISTORY: Significant for: 1. Multiple myeloma. 2. AFib. 3. CAD. 4. CKD stage 3. 5. Peripheral vascular disease. 6. TIA. 7. Bilateral lower extremity neuropathy. 8. GERD. 9. CHF, last known EF of 35%. PAST SURGICAL HISTORY: 1. He has had a pacemaker/AICD placement. 2. He has had a left lower extremity angioplasty just done with Dr. Samayoa in July of this year. 3. Cataract extraction. HOME MEDICATIONS: According to the list that they provided include: 1. Plavix 75 mg p.o. daily. 2. Lipitor 80 mg daily. 3. Aspirin 81 mg daily. 4. Vitamin D3 1000 units p.o. daily. 5. Coreg 6.25 mg p.o. b.i.d. 6. Synthroid 50 mcg p.o. daily. 7. Iron complex 150 mg p.o. daily. 8. Lasix 40 mg daily. 9. Pradaxa 75 mg p.o. b.i.d. 10. Lyrica 75 mg p.o. b.i.d. 11. Potassium 20 mEq p.o. daily. 12. Protonix 40 mg p.o. daily. ALLERGIES TO MEDICATIONS: Include ALLOPURINOL, NEXIUM, SPIRONOLACTONE and IV DYE. FAMILY HISTORY: Mother had a history of hypertension, diabetes. Father had a history of TB. SOCIAL HISTORY: He does drink 1 beer a day. He denies any smoking. He quit 50 years ago. Surrogate decision maker is his daughter. REVIEW OF SYSTEMS: There is no documented fever. He denied having any significant weight change. There was no double vision. He denies having any ear discharge. There was no rhinorrhea, no sore throat. No thyroid enlargement. Denies having any chest pain. There is no orthopnea. No dyspnea on exertion. There is no abdominal pain. No nausea, no vomiting. No dysuria, no frequency. No seizure. There was no loss of consciousness. No pruritus. No skin ulceration. Review of 14 systems completed and all others negative. PHYSICAL EXAMINATION GENERAL: Mr. Barton is an 86-year-old male patient, sitting in the ER stretcher. He does not appear to be in any acute distress. VITAL SIGNS: Initially blood pressure 99/34, blood pressure now is 128/56, pulse 68, respirations 18, O2 sat 100%, temperature 97.5. HEENT: Head is atraumatic, normocephalic. Eyes: EOMs are intact. Sclerae anicteric and not pale. Throat: Oral mucosa appears to be moist. No oropharyngeal erythema. NECK: Supple. LUNGS: Clear to auscultation. No wheezes, rales or rhonchi. HEART: Sounds S1, S2. Regular rate and rhythm. No murmurs, rubs or gallops. ABDOMEN: Soft, flat, nontender. Bowel sounds present. EXTREMITIES: Pulses were 2+ throughout. He is able to move all extremities with 5/5 strength. NEUROLOGIC: The patient is awake. He is alert. He is oriented x3. Tongue midline. Dispatcher [employer] Disposal were equal. No gross focal deficits. SKIN: Grossly intact. DIAGNOSTIC STUDIES/LABORATORY DATA: Labs today revealed WBC of 10.4, RBC is 1.83, hemoglobin 6, hematocrit 19, platelet count 190. INR was 2.07. PTT of 55.3. Sodium was 139, potassium 4.2, chloride of 105, bicarb 21, BUN 79, creatinine 1.54, glucose 110, calcium 8.7, total bili 0.9. AST 24, ALT 16, troponin 0.03. He did have an EKG obtained today, which shows a sinus rhythm artifact. It appears to be a left bundle branch block. It was reviewed to the previous EKG 4 years ago, appears to be similar. Old medical records were reviewed. ASSESSMENT AND PLAN: Mr. Barton is an 86-year-old male patient coming into the ER today with complaints of tarry stools and dizziness with position changes and evaluation known to be heme positive. In addition to this, also found to have a low H and H. He will be admitted under inpatient status for: 1. GI bleed. At this point, I did touch base with Dr. Foote. I tried calling Dr. Samayoa rather. Unfortunately, he did not pickup but my plan is to just go ahead, reverse the Plavix. He did not get a stent. I will go ahead and give him a unit of platelets. I will go ahead and he got Praxbind here in the ED. We will stop his aspirin, stop his Pradaxa, stop the Plavix. We will touch base with Dr. Samayoa in the morning. We will go ahead and give him 2 units of blood, put him on a PPI drip, 2 saline locks, n.p.o. after midnight for an EGD in the morning and I did put him in the ICU. I will give him a dose of Lasix between his units of blood. 2. Multiple myeloma. Follow with his primary and Dr. Arriola. 3. Atrial fibrillation. He appears to be in sinus rhythm currently. We will monitor. Hold the Pradaxa and follow. 4. Coronary artery disease. I am going to hold the aspirin. I am holding his beta-jorje as when he came in, his pressures were in the 90s. We will restart these when we are able. 5. Chronic kidney disease stage 3. His creatinine appears to be at baseline. 6. Peripheral vascular disease. Again, we will continue just the statin. When able, we will restart him on the Plavix, aspirin for this. 7. History of transient ischemic attack. Continue with secondary prevention with statin only. 8. Neuropathy. Continue with supportive care. 9. Gastroesophageal reflux disease. He will be on a PPI drip. 10. History of congestive heart failure. We need to monitor his Is and Os carefully and diurese him as needed. I am going to give Lasix between the units of blood and we will continue to follow. 11. Code status. He wishes to be a DNR. We will fill out a MOLST with him. 12. Fluids, electrolytes, and nutrition. Clear liquid diet, n.p.o. after midnight. TIME SPENT: Time spent on the admission was approximately 70 minutes; greater than half the time was spent [id number] with the patient obtaining my history and physical, other half the time spent going over the plan of care with the patient and implementing the plan of care. I did discuss the plan of care with my attending, Dr. Manzano; he is in agreement. KENDALL LUGO NP CC: Dr. Santos; Dr. Foote; Dr. Samayoa* [id number]/[facility] #: [id number] MTDD
[2016-10-14 04:03] LABS: Comments Flag Yes; Hematocrit 25 % (42-52)
[2016-10-14] MEDS: Levothyroxine TAB* 50 MCG TAB PO SCH (06:12)
[2016-10-14 06:40] LABS: Hematocrit 24 % (42-52); Hemoglobin 7.6 g/dl (14.0-18.0); Mean Corpuscular HGB Conc 32 g/dl (31-36); Mean Corpuscular Hemoglobin 31 pg (27-31); Mean Corpuscular Volume 98 fL (80-94); Mean Platelet Volume 9 um3 (7.4-10.4); Red Blood Count 2.45 10^6/ul (4.0-5.4); White Blood Count 15.3 10^3/ul (3.5-10.8)
[2016-10-14 06:41] LABS: Comments Flag Yes; Red Cell Distribution Width 24 % (10.5-15)
[2016-10-14 07:00] LABS: BUN/Creatinine Ratio 46.1 (8-20); Calcium 8.4 mg/dL (8.6-10.3); EGFR African American 56.1 (>60); EGFR Non-African American 43.6 (>60); Potassium 3.7 mmol/L (3.5-5.0)
[2016-10-14] MEDS: Pregabalin CAP(*) 25 MG PO SCH ×2 (08:28→21:15)
[2016-10-14] MEDS: Atorvastatin* 80 MG TAB PO SCH (08:28)
--- NOTE | 2016-10-14 09:00 | PN ---
Subjective Date of Service: 10/14/16 Interval History: Patient seen and examined at bedside. Denies CP, SOB, abd pain, n/v, fever/chills. Feels "a lot better" after receiving 2 unit PRBCs. Daughter at bedside. Patient s/p angioplasty in July with Dr. Samayoa - discussed with family. Will notify Dr. Samayoa of patient's hospitalization. Per family and records, no stents placed. Patient also a patient of wound clinic - consult pending. Family History: Unchanged from Admission Social History: Unchanged from Admission Past Medical History: Unchanged from Admission Objective Active Medications: Acetaminophen (Tylenol Tab*) 650 mg PO Q4H PRN PRN Reason: FEVER/PAIN Atorvastatin Calcium (Lipitor*) 80 mg PO DAILY [facility] Last Admin: 10/14/16 08:28 Dose: 80 mg Pantoprazole Sodium 80 mg/ (Sodium Chloride) 250 mls @ 25 mls/hr IVPB Q10H [facility] Last Admin: 10/14/16 08:52 Dose: Not Given Levothyroxine Sodium (Synthroid Tab*) 50 mcg PO DAILY@0600 [facility] Last Admin: 10/14/16 06:12 Dose: Not Given Ondansetron HCl (Zofran Inj*) 4 mg IV Q6H PRN PRN Reason: NAUSEA Pregabalin (Lyrica Cap(*)) 75 mg PO BID [facility] Last Admin: 10/14/16 08:28 Dose: 75 mg Temazepam (Restoril Cap*) 15 mg PO BEDTIME PRN PRN Reason: INSOMNIA Last Admin: 10/13/16 23:57 Dose: 15 mg Vital Signs 10/13/16 10/13/16 10/13/16 21:30 21:36 21:52 Temperature Pulse Rate Respiratory 17 19 18 Rate Blood Pressure 116/44 124/46 (mmHg) O2 Sat by Pulse Oximetry 10/13/16 10/13/16 10/13/16 21:53 22:00 22:26 Temperature 98.6 F Pulse Rate 65 Respiratory 16 20 15 Rate Blood Pressure 123/50 119/47 129/47 (mmHg) O2 Sat by Pulse 98 Oximetry 10/13/16 10/13/16 10/13/16 22:30 22:59 23:00 Temperature Pulse Rate 63 Respiratory 17 18 15 Rate Blood Pressure 121/49 117/42 129/47 (mmHg) O2 Sat by Pulse 99 Oximetry 10/13/16 10/13/16 10/13/16 23:15 23:30 23:45 Temperature Pulse Rate 56 65 64 Respiratory 18 14 15 Rate Blood Pressure 129/45 112/38 122/46 (mmHg) O2 Sat by Pulse 97 100 100 Oximetry 10/14/16 10/14/16 10/14/16 00:00 00:01 00:35 Temperature Pulse Rate 64 65 61 Respiratory 16 15 15 Rate Blood Pressure 130/64 130/64 (mmHg) O2 Sat by Pulse 100 100 100 Oximetry 10/14/16 10/14/16 10/14/16 00:45 00:52 01:00 Temperature Pulse Rate 62 66 61 Respiratory 16 18 17 Rate Blood Pressure 121/48 127/52 (mmHg) O2 Sat by Pulse 98 74 100 Oximetry 10/14/16 10/14/16 10/14/16 01:15 01:30 01:49 Temperature Pulse Rate 60 60 Respiratory 14 20 13 Rate Blood Pressure 108/41 119/45 (mmHg) O2 Sat by Pulse 100 99 Oximetry 10/14/16 10/14/16 10/14/16 02:00 03:00 03:10 Temperature Pulse Rate 60 59 Respiratory 13 14 Rate Blood Pressure 130/58 90/43 (mmHg) O2 Sat by Pulse 100 100 Oximetry 10/14/16 10/14/16 10/14/16 03:18 03:35 03:59 Temperature 99.1 F Pulse Rate 64 61 Respiratory 17 15 Rate Blood Pressure 129/53 137/58 (mmHg) O2 Sat by Pulse 99 100 Oximetry 10/14/16 10/14/16 10/14/16 04:00 04:18 04:24 Temperature Pulse Rate 60 62 60 Respiratory 15 21 21 Rate Blood Pressure 107/44 128/60 (mmHg) O2 Sat by Pulse 100 100 100 Oximetry 10/14/16 10/14/16 10/14/16 04:57 04:58 05:42 Temperature Pulse Rate 60 Respiratory 14 15 13 Rate Blood Pressure (mmHg) O2 Sat by Pulse 100 Oximetry 10/14/16 10/14/16 10/14/16 06:00 06:11 07:00 Temperature Pulse Rate 59 59 60 Respiratory 13 14 21 Rate Blood Pressure 103/35 114/49 130/56 (mmHg) O2 Sat by Pulse 100 100 100 Oximetry 10/14/16 07:22 Temperature 97.6 F Pulse Rate Respiratory Rate Blood Pressure (mmHg) O2 Sat by Pulse Oximetry Oxygen Devices in Use Now: None Appearance: Elderly male, sitting up in bed, NAD Eyes: PERRLA Ears/Nose/Mouth/Throat: Mucous Membranes Moist Neck: NL Appearance and Movements; NL JVP Respiratory: Symmetrical Chest Expansion and Respiratory Effort, Clear to Auscultation Cardiovascular: RRR - S1, S2, systolic murmur Abdominal: NL Sounds; No Tenderness; No Distention Extremities: No Edema Skin: - - Left foot dressing c/d/i - did not unwrap, will wait for wound care consult. Neurological: Alert and Oriented x 3 Lines/Tubes/Other Access: Clean, Dry and Intact Peripheral IV Result Diagrams: 10/14/16 06:30 10/14/16 06:30 Microbiology and Other Data: Microbiology 10/13/16 23:50 Nasal Screen MRSA (PCR)(MELA) - Final Nasal Mrsa Negative Assess/Plan/Problems-Billing Assessment: Mr. Montesinos is an 86 yo male with a PMH of multiple myeloma, atrial fibrillation , CAD, CKD stage 3, PVD, TIA, BLE neuropathy, CHF, and GERD who presented to the ED on 10/13 with concern for tarry stools, dizziness, and dyspnea with exertion; he was found to be anemic and had a positive occult stool. - Patient Problems (1) Gastrointestinal bleed Code(s): K92.2 - GASTROINTESTINAL HEMORRHAGE, UNSPECIFIED Comment: S/p 2 units PRBC Continue to trend HH Patient received Praxbind reversal for dabigatran in the ED. ASA and Plavix on hold. Appreciate GI consult. Endoscopy planned for today. Continue pantoprazole gtt and IVF. (2) Atrial fibrillation Code(s): I48.91 - UNSPECIFIED ATRIAL FIBRILLATION Comment: Currently in SR. Pradaxa held for acute GIB. Carvedilol held for hypotension. Resume when hemodynamically stable. (3) CKD (chronic kidney disease) stage 3, GFR 30-59 ml/min Code(s): N18.3 - CHRONIC KIDNEY DISEASE, STAGE 3 (MODERATE) Comment: Creatinine within baseline. (4) Chronic wound of extremity Code(s): QUI7812 - Comment: S/p angioplasty in July 2016 Wound clinic patient - appreciate inpatient consult Dressing changes per wound care (5) Peripheral vascular disease Code(s): I73.9 - PERIPHERAL VASCULAR DISEASE, UNSPECIFIED Comment: Dr. Samayoa notified of patient's admission. Continue to hold ASA and clopidogrel with acute bleed. Continue statin. (6) CAD (coronary artery disease) Code(s): I25.10 - ATHSCL HEART DISEASE OF [place] CORONARY ARTERY W/O ANG PCTRS Comment: Continue statin. Resume carvediolol when hemodynamically stable. Continue to hold ASA in acute GIB. (7) CHF (congestive heart failure) Code(s): I50.9 - HEART FAILURE, UNSPECIFIED Comment: Continue to closely monitor I/O and daily weights. Patient's last recorded EF 35% in 2011. Resume beta jorje and furosemide when hemodynamically stable. (8) Peripheral neuropathy Code(s): G62.9 - POLYNEUROPATHY, UNSPECIFIED Comment: Continue pregabalin. (9) GERD (gastroesophageal reflux disease) Code(s): K21.9 - GASTRO-ESOPHAGEAL REFLUX DISEASE WITHOUT ESOPHAGITIS Comment : Patient is on pantoprazole gtt. (10) Multiple myeloma Code(s): C90.00 - MULTIPLE MYELOMA NOT HAVING ACHIEVED REMISSION Comment: Continue outpatient f/u with oncology. (11) DVT prophylaxis Code(s): MZP0924 - Comment: Contraindicated in acute hemorrhage SCDs Status and Disposition: Inpatient admission. D/c to home when medically stable.
[2016-10-14] MEDS ORDERED: Meperidine SYRINGE* 50 MG/ML ONE (11:19)
[2016-10-14] MEDS ORDERED: Midazolam* 1 MG/ML 10 ML VIAL (10 MG) ONE (11:19)
[2016-10-14 12:46] LABS: Hematocrit 23 % (42-52); Hemoglobin 7.6 g/dl (14.0-18.0)
[2016-10-14 12:51] LABS: Comments Flag Yes
[2016-10-14 18:28] LABS: Hematocrit 24 % (42-52); Hemoglobin 7.5 g/dl (14.0-18.0)
[2016-10-14 18:30] LABS: Comments Flag Yes
[2016-10-14] MEDS: Temazepam CAP* 15 MG PO PRN (21:15)
[2016-10-14] MEDS: CMC: Pantoprazole TAB (NF) 40 MG TAB PO SCH (21:15)
[2016-10-15 00:01] LABS: Hematocrit 24 % (42-52); Hemoglobin 7.6 g/dl (14.0-18.0)
[2016-10-15 00:37] LABS: Comments Flag Yes
--- NOTE | 2016-10-15 01:22 | PRO ---
PROCEDURE REPORT: DATE OF PROCEDURE: 10/14/16 - inpatient, room #417-02 REQUESTING PROVIDER: Sherif Lugo NP PROCEDURE: EGD. INDICATION: Melena. MEDICATIONS GIVEN: 1. 25 mg IV Demerol. 2. 2 mg IV Versed. DESCRIPTION OF PROCEDURE: After the EGD procedure, including the risks, benefits, and alternatives, not limited to perforation, surgery, and/or were explained to Mr. Barton, written consent was then obtained. IV medication was given and a bite-block was placed between the teeth. An Olympus gastroscope was then inserted into the patient's mouth, advanced down the esophagus, into the stomach, into the distal duodenum. In the esophagus, at the GE junction, the Z-line was intact. No erosive esophagitis, stricture, or ring was seen. The scope was advanced through a widely patent GE junction into the body of the stomach. Retroflex view was unremarkable except for gastritis. Forward view was also revealed pangastritis. There was no active bleeding seen. I did take a very careful and through look for any ulcers. I could not find any ulcers. The scope was advanced through a widely patent pylorus, into the duodenal bulb. Duodenal bulb was slightly deformed, it was more narrow than normal. I was able to make it down to the second and third portions of the duodenum, there was bile down there. No bleeding was seen. No ulcers were seen in the duodenal bulb. The scope was then withdrawn from the patient. He tolerated the procedure well. A biopsy was obtained for H. pylori. IMPRESSION: 1. Complete upper endoscopy into the distal duodenum with biopsies. 2. Pangastritis, most likely cause for his melena. 3. Helicobacter pylori, biopsy is pending. 4. If the Helicobacter pylori is negative, I really do not have a good indication for his gastritis. 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 His LFTs were unremarkable and his most recent CT did not reveal any evidence of cirrhosis. I do wonder if he bled because he had been on the pantoprazole which was stopped and then he had Plavix and aspirin added into his regimen. I think he needs to be on pantoprazole lifelong and we need to consider whether or not he should continue on his Plavix and aspirin. CC: Dr. Arielle Santos* [id number]/[facility] #: [id number] NINA
--- NOTE | 2016-10-15 01:31 | CONS ---
CONSULTATION REPORT: DATE OF CONSULT: 10/14/16 REQUESTING PHYSICIAN: Sherif Lugo NP INDICATION: Melena. NARRATIVE: Mr. Barton is a very pleasant 86-year-old gentleman, who is on aspirin, Plavix, and Pradaxa, who has had a remote history of peptic ulcer disease in the . The patient states he has been having black and tarry stools for the past 2 weeks. Yesterday, he was weak and dizzy, came to the emergency room, was found to have a hemoglobin of 6.1. He denies any abdominal pain. He did have a bowel movement this morning, does not know the color. PAST MEDICAL HISTORY: Significant for AFib, coronary artery disease, chronic kidney disease, peripheral vascular disease, CHF, GERD, multiple myeloma. PAST SURGICAL HISTORY: Pacemaker ICD. He has numerous stents. MEDICATIONS: Include: 1. Plavix. 2. Aspirin. 3. Lipitor. 4. Coreg. 5. Synthroid. 6. Lasix. 7. Pradaxa. 8. Lyrica. 9. Potassium. 10. Protonix. ALLERGIES: To ALLOPURINOL, NEXIUM, SPIRONOLACTONE, and IV DYE. FAMILY HISTORY: Hypertension, diabetes, TB. SOCIAL HISTORY: Continues to drink alcohol. No smoking. REVIEW OF SYSTEMS: 12 systems were reviewed and other than that mentioned in the HPI were unremarkable. PHYSICAL EXAM: Temperature is 98.7, blood pressure 119/52, pulse is 60, O2 sats are 99%. General: Chronically ill-appearing male, appears his stated age of 86. Alert, oriented, pleasant, and fluent. HEENT: Mucous membranes are moist without lesions, ulcers or exudate. Neck is supple. Trachea is midline. Head is normocephalic, atraumatic. Heart: Irregular rate and rhythm. Lungs : Clear to auscultation. Abdomen: Positive bowel sounds, soft, nontender, nondistended. No hepatosplenomegaly, masses, rebound, or guarding. Skin is warm and dry. DIAGNOSTIC STUDIES/LAB DATA: Labs reveal a BUN of 70, creatinine is 1.52, hemoglobin is 7.6 down from 8, up from 6.1. He has received 2 units of blood so far. ASSESSMENT AND PLAN: This is a pleasant 86-year-old gentleman with a history of peptic ulcer disease, on aspirin, Plavix, and Pradaxa, who presents with anemia and melena. He appears to be having upper GI bleed, likely a peptic ulcer disease. He is on IV Protonix. He has 2 large bore IVs. I will make arrangements for his EGD today. [id number]/[facility] #: [id number] NINA
[2016-10-15] MEDS ORDERED: NS 0.9% 250 ML* 250 ML IVPB ONE (05:00)
[2016-10-15] MEDS: Levothyroxine TAB* 50 MCG TAB PO SCH (05:14)
[2016-10-15 05:45] LABS: Hematocrit 22 % (42-52); Hemoglobin 7.1 g/dl (14.0-18.0); Mean Corpuscular HGB Conc 33 g/dl (31-36); Mean Corpuscular Hemoglobin 32 pg (27-31); Mean Corpuscular Volume 97 fL (80-94); Mean Platelet Volume 9 um3 (7.4-10.4); Red Blood Count 2.24 10^6/ul (4.0-5.4)
[2016-10-15 05:46] LABS: Comments Flag Yes; Red Cell Distribution Width 24 % (10.5-15)
[2016-10-15 05:57] LABS: BUN/Creatinine Ratio 38.6 (8-20); EGFR African American 59.2 (>60); Potassium 3.6 mmol/L (3.5-5.0)
[2016-10-15] MEDS: CMC: Pantoprazole TAB (NF) 40 MG TAB PO SCH ×2 (07:38→21:43)
[2016-10-15] MEDS: Pregabalin CAP(*) 25 MG PO SCH ×2 (07:38→21:35)
[2016-10-15] MEDS: Atorvastatin* 80 MG TAB PO SCH (07:38)
[2016-10-15 11:18] LABS: Comments Flag Yes; Hematocrit 25 % (42-52); Hemoglobin 8.1 g/dl (14.0-18.0)
--- NOTE | 2016-10-15 11:30 | PN ---
Subjective Date of Service: 10/15/16 Interval History: Patient seen and examined at bedside. He reports feeling well, denies weakness or shortness of breath. Denies chest pain, abd pain, n/v. Denies any black tarry stools, bloody stools. Family History: Unchanged from Admission Social History: Unchanged from Admission Past Medical History: Unchanged from Admission Objective Active Medications: Acetaminophen (Tylenol Tab*) 650 mg PO Q4H PRN PRN Reason: FEVER/PAIN Atorvastatin Calcium (Lipitor*) 80 mg PO DAILY [facility] Last Admin: 10/15/16 07:38 Dose: 80 mg Levothyroxine Sodium (Synthroid Tab*) 50 mcg PO DAILY@0600 [facility] Last Admin: 10/15/16 05:14 Dose: 50 mcg Ondansetron HCl (Zofran Inj*) 4 mg IV Q6H PRN PRN Reason: NAUSEA Pantoprazole Sodium (Protonix Tab (Nf)) 40 mg PO BID [facility] Last Admin: 10/15/16 07:38 Dose: 40 mg Pregabalin (Lyrica Cap(*)) 75 mg PO BID [facility] Last Admin: 10/15/16 07:38 Dose: 75 mg Temazepam (Restoril Cap*) 15 mg PO BEDTIME PRN PRN Reason: INSOMNIA Last Admin: 10/14/16 21:15 Dose: 15 mg Vital Signs 10/14/16 10/14/16 10/14/16 12:00 13:00 13:50 Temperature 98.7 F Pulse Rate 59 60 66 Respiratory 19 17 19 Rate Blood Pressure 105/41 119/52 110/40 (mmHg) O2 Sat by Pulse 100 99 100 Oximetry 10/14/16 10/14/16 10/14/16 13:55 14:00 14:05 Temperature Pulse Rate 61 62 64 Respiratory 16 12 13 Rate Blood Pressure 108/36 110/41 113/40 (mmHg) O2 Sat by Pulse 100 94 99 Oximetry 10/14/16 10/14/16 10/14/16 14:15 14:20 14:25 Temperature Pulse Rate 61 60 Respiratory 20 22 Rate Blood Pressure 99/34 103/38 101/37 (mmHg) O2 Sat by Pulse 98 95 Oximetry 10/14/16 10/14/16 10/14/16 14:30 14:35 14:40 Temperature Pulse Rate 60 59 60 Respiratory 19 23 18 Rate Blood Pressure 102/38 102/38 101/41 (mmHg) O2 Sat by Pulse 95 95 96 Oximetry 10/14/16 10/14/16 10/14/16 14:45 14:50 14:55 Temperature Pulse Rate 60 60 60 Respiratory 21 23 24 Rate Blood Pressure 108/38 106/41 103/39 (mmHg) O2 Sat by Pulse 97 96 95 Oximetry 10/14/16 10/14/16 10/14/16 15:00 15:05 15:10 Temperature Pulse Rate 60 60 60 Respiratory 23 23 24 Rate Blood Pressure 107/43 107/43 112/42 (mmHg) O2 Sat by Pulse 95 96 95 Oximetry 10/14/16 10/14/16 10/14/16 15:34 16:00 17:00 Temperature 98.1 F Pulse Rate 60 63 Respiratory 22 17 Rate Blood Pressure 118/50 142/53 (mmHg) O2 Sat by Pulse 97 100 Oximetry 10/14/16 10/14/16 10/14/16 17:03 17:46 17:58 Temperature 97.4 F 97.4 F Pulse Rate 62 62 Respiratory 18 18 Rate Blood Pressure 117/79 117/79 (mmHg) O2 Sat by Pulse 97 100 100 Oximetry 10/14/16 10/14/16 10/14/16 19:34 19:36 20:00 Temperature 97.3 F Pulse Rate 125 Respiratory 18 16 16 Rate Blood Pressure 118/49 (mmHg) O2 Sat by Pulse 100 Oximetry 10/14/16 10/14/16 10/14/16 21:15 23:14 23:15 Temperature 97.4 F Pulse Rate 61 Respiratory 18 16 18 Rate Blood Pressure 102/38 (mmHg) O2 Sat by Pulse 99 Oximetry 10/15/16 10/15/16 10/15/16 03:55 03:59 07:29 Temperature 97.8 F 97.5 F Pulse Rate 59 63 Respiratory 16 18 Rate Blood Pressure 90/31 92/40 95/34 (mmHg) O2 Sat by Pulse 98 91 Oximetry 10/15/16 10/15/16 10/15/16 07:31 07:38 07:51 Temperature Pulse Rate 64 Respiratory 18 18 Rate Blood Pressure 113/48 (mmHg) O2 Sat by Pulse Oximetry 10/15/16 09:38 Temperature Pulse Rate Respiratory 18 Rate Blood Pressure (mmHg) O2 Sat by Pulse Oximetry Oxygen Devices in Use Now: None Appearance: Elderly male, sitting in bed, NAD Eyes: PERRLA Ears/Nose/Mouth/Throat: Mucous Membranes Moist Neck: NL Appearance and Movements; NL JVP Respiratory: Symmetrical Chest Expansion and Respiratory Effort, Clear to Auscultation Cardiovascular: NL Sounds; No Murmurs; No JVD, RRR Abdominal: NL Sounds; No Tenderness; No Distention Extremities: - - LLE wound dressing c/d/i Neurological: Alert and Oriented x 3, NL Muscle Strength and Tone Lines/Tubes/Other Access: Clean, Dry and Intact Peripheral IV Nutrition: Taking PO's Result Diagrams: 10/15/16 10:59 10/15/16 04:54 Microbiology and Other Data: Microbiology 10/13/16 23:50 Nasal Screen MRSA (PCR)(MELA) - Final Nasal Mrsa Negative Assess/Plan/Problems-Billing Assessment: Mr. Montesinos is an 86 yo male with a PMH of multiple myeloma, atrial fibrillation , CAD, CKD stage 3, PVD, TIA, BLE neuropathy, CHF, and GERD who presented to the ED on 10/13 with concern for tarry stools, dizziness, and dyspnea with exertion; he was found to be anemic and had a positive occult stool. - Patient Problems (1) Gastrointestinal bleed Code(s): K92.2 - GASTROINTESTINAL HEMORRHAGE, UNSPECIFIED Comment: Endoscopy shows pangastritis S/p 2 units PRBC, HH stable. Appreciate GI consult. Continue pantoprazole BID. Discussed continuation of Pradaxa and antiplatelet therapies with Dr. Hearn, who recommended continuing PPI and restarting ASA and Pradaxa. Discussed with Dr. Samayoa, who is in agreement with stopping clopidogrel and continuing ASA in the setting of PPI therapy. (2) Atrial fibrillation Code(s): I48.91 - UNSPECIFIED ATRIAL FIBRILLATION Comment: Currently in SR. Pradaxa held for acute GIB. Carvedilol held for hypotension. Resume when hemodynamically stable. (3) CKD (chronic kidney disease) stage 3, GFR 30-59 ml/min Code(s): N18.3 - CHRONIC KIDNEY DISEASE, STAGE 3 (MODERATE) Comment: Creatinine within baseline. (4) Chronic wound of extremity Code(s): LPK9842 - Comment: S/p angioplasty in July 2016 Wound clinic patient - appreciate inpatient consult Dressing changes per wound care (5) Peripheral vascular disease Code(s): I73.9 - PERIPHERAL VASCULAR DISEASE, UNSPECIFIED Comment: Dr. Samayoa notified of patient's admission. Continue to hold ASA and clopidogrel with acute bleed. Continue statin. (6) CAD (coronary artery disease) Code(s): I25.10 - ATHSCL HEART DISEASE OF [place] CORONARY ARTERY W/O ANG PCTRS Comment: Continue statin. Resume carvediolol when hemodynamically stable. Continue to hold ASA in acute GIB. (7) CHF (congestive heart failure) Code(s): I50.9 - HEART FAILURE, UNSPECIFIED Comment: Continue to closely monitor I/O and daily weights. Patient's last recorded EF 35% in 2011. Resume beta jorje and furosemide when hemodynamically stable. (8) Peripheral neuropathy Code(s): G62.9 - POLYNEUROPATHY, UNSPECIFIED Comment: Continue pregabalin. (9) GERD (gastroesophageal reflux disease) Code(s): K21.9 - GASTRO-ESOPHAGEAL REFLUX DISEASE WITHOUT ESOPHAGITIS Comment : Continue PO pantoprazole BID. (10) Multiple myeloma Code(s): C90.00 - MULTIPLE MYELOMA NOT HAVING ACHIEVED REMISSION Comment: Continue outpatient f/u with oncology. (11) DVT prophylaxis Code(s): AUK3646 - Comment: Contraindicated in acute hemorrhage SCDs Status and Disposition: Inpatient admission. D/c to home when medically stable.
[2016-10-15 18:17] LABS: Comments Flag Yes; Hematocrit 24 % (42-52); Hemoglobin 7.6 g/dl (14.0-18.0)
[2016-10-15] MEDS: Temazepam CAP* 15 MG PO PRN (23:10)
[2016-10-16] MEDS: Levothyroxine TAB* 50 MCG TAB PO SCH (06:22)
[2016-10-16 06:58] LABS: Hematocrit 25 % (42-52)
[2016-10-16 07:00] LABS: Comments Flag Yes
--- NOTE | 2016-10-16 07:43 | PN ---
Subjective Date of Service: 10/16/16 Interval History: Patient seen and examined at bedside. Does not endorse any acute complaint. Eager to go home. States, "I'm feeling pretty good." Denies any s/s bleeding, dark tarry stools, abd pain. Family History: Unchanged from Admission Social History: Unchanged from Admission Past Medical History: Unchanged from Admission Objective Active Medications: Acetaminophen (Tylenol Tab*) 650 mg PO Q4H PRN PRN Reason: FEVER/PAIN Aspirin (Aspirin Low Dose Tab*) 81 mg PO DAILY [facility] Atorvastatin Calcium (Lipitor*) 80 mg PO DAILY [facility] Last Admin: 10/15/16 07:38 Dose: 80 mg Levothyroxine Sodium (Synthroid Tab*) 50 mcg PO DAILY@0600 [facility] Last Admin: 10/16/16 06:22 Dose: 50 mcg Ondansetron HCl (Zofran Inj*) 4 mg IV Q6H PRN PRN Reason: NAUSEA Pantoprazole Sodium (Protonix Tab (Nf)) 40 mg PO BID [facility] Last Admin: 10/15/16 21:43 Dose: 40 mg Pregabalin (Lyrica Cap(*)) 75 mg PO BID [facility] Last Admin: 10/15/16 21:35 Dose: 75 mg Temazepam (Restoril Cap*) 15 mg PO BEDTIME PRN PRN Reason: INSOMNIA Last Admin: 10/15/16 23:10 Dose: 15 mg Vital Signs 10/15/16 10/15/16 10/15/16 07:51 09:38 15:35 Temperature 97.6 F Pulse Rate 64 Respiratory 18 18 Rate Blood Pressure 112/47 (mmHg) O2 Sat by Pulse 95 Oximetry 10/15/16 10/15/16 10/15/16 20:04 21:09 21:35 Temperature Pulse Rate 62 Respiratory 18 18 Rate Blood Pressure 112/44 (mmHg) O2 Sat by Pulse 98 Oximetry 10/15/16 10/15/16 23:35 23:53 Temperature 98.1 F Pulse Rate 62 Respiratory 20 16 Rate Blood Pressure 106/34 (mmHg) O2 Sat by Pulse 99 Oximetry Oxygen Devices in Use Now: None Appearance: Elderly male, sitting up in bed, NAD Eyes: No Scleral Icterus Ears/Nose/Mouth/Throat: Mucous Membranes Moist Neck: NL Appearance and Movements; NL JVP Respiratory: Symmetrical Chest Expansion and Respiratory Effort, Clear to Auscultation Cardiovascular: RRR - systolic murmur Abdominal: NL Sounds; No Tenderness; No Distention Extremities: No Edema Skin: - - LLE dressing c/d/i Neurological: Alert and Oriented x 3, NL Muscle Strength and Tone Lines/Tubes/Other Access: Clean, Dry and Intact Peripheral IV Nutrition: Taking PO's Result Diagrams: 10/16/16 06:49 10/15/16 04:54 Microbiology and Other Data: Microbiology 10/13/16 23:50 Nasal Screen MRSA (PCR)(MELA) - Final Nasal Mrsa Negative Assess/Plan/Problems-Billing Assessment: Mr. Montesinos is an 86 yo male with a PMH of multiple myeloma, atrial fibrillation , CAD, CKD stage 3, PVD, TIA, BLE neuropathy, CHF, and GERD who presented to the ED on 10/13 with concern for tarry stools, dizziness, and dyspnea with exertion; he was found to be anemic and had a positive occult stool. - Patient Problems (1) Gastrointestinal bleed Code(s): K92.2 - GASTROINTESTINAL HEMORRHAGE, UNSPECIFIED Comment: Endoscopy shows pangastritis. H.pylori negative S/p 2 units PRBC, HH stable. Appreciate GI consult. Continue pantoprazole BID. Discussed continuation of Pradaxa and antiplatelet therapies with Dr. Hearn, who recommended continual maintenance on PPI, mehdi when restarting ASA and Pradaxa. Discussed with Dr. Samayoa, who is in agreement with stopping clopidogrel and continuing ASA in the setting of PPI therapy. (2) Atrial fibrillation Code(s): I48.91 - UNSPECIFIED ATRIAL FIBRILLATION Comment: Currently in SR. Pradaxa held for acute GIB. Restart carvedilol. (3) CKD (chronic kidney disease) stage 3, GFR 30-59 ml/min Code(s): N18.3 - CHRONIC KIDNEY DISEASE, STAGE 3 (MODERATE) Comment: Creatinine within baseline. (4) Chronic wound of extremity Code(s): [id number] - Comment: S/p angioplasty in July 2016 Wound clinic patient - appreciate inpatient consult Dressing changes per wound care (5) Peripheral vascular disease Code(s): I73.9 - PERIPHERAL VASCULAR DISEASE, UNSPECIFIED Comment: Restart ASA. Continue statin. (6) CAD (coronary artery disease) Code(s): I25.10 - ATHSCL HEART DISEASE OF [place] CORONARY ARTERY W/O ANG PCTRS Comment: Continue statin. Resume carvedilol and ASA. (7) CHF (congestive heart failure) Code(s): I50.9 - HEART FAILURE, UNSPECIFIED Comment: Continue to closely monitor I/O and daily weights. Patient's last recorded EF 35% in 2011. Resume carvedilol. (8) Peripheral neuropathy Code(s): G62.9 - POLYNEUROPATHY, UNSPECIFIED Comment: Continue pregabalin. (9) GERD (gastroesophageal reflux disease) Code(s): K21.9 - GASTRO-ESOPHAGEAL REFLUX DISEASE WITHOUT ESOPHAGITIS Comment : Continue PO pantoprazole BID. (10) Multiple myeloma Code(s): C90.00 - MULTIPLE MYELOMA NOT HAVING ACHIEVED REMISSION Comment: Continue outpatient f/u with oncology. (11) DVT prophylaxis Code(s): [id number] - Comment: Contraindicated in acute hemorrhage SCDs Status and Disposition: Inpatient admission. D/c to home when medically stable.
[2016-10-16] MEDS ORDERED: Carvedilol TAB* 6.25 MG PO SCH (09:00)
[2016-10-16] MEDS ORDERED: Aspirin Low Dose CHEW TAB* 81 MG PO SCH ×2 (09:00)
[2016-10-16] MEDS: Pregabalin CAP(*) 25 MG PO SCH (09:08)
[2016-10-16] MEDS: CMC: Pantoprazole TAB (NF) 40 MG TAB PO SCH (09:09)
[2016-10-16] MEDS: Atorvastatin* 80 MG TAB PO SCH (09:09)
[2016-10-16 09:58] VITALS: BP 120/51
--- NOTE | 2016-10-16 21:25 | DS ---
MEDICINE DISCHARGE SUMMARY: DATE OF ADMISSION: 10/13/16 DATE OF DISCHARGE: 10/16/16 PROVIDER: Aquiles Leos NP ATTENDING PHYSICIAN: Dr. Zaira Gonsalez* (as dictated by Aquiles Leos NP). CONSULTING RESIDENT ATHLETIC TRAINER: Dr. Foote. PRIMARY CARE PHYSICIAN: Dr. Santos. PRIMARY GENERAL MEDICAL PRACTITIONER: Dr. Yasmine Hernandez. WOUND CARE PHYSICIAN: Dr. Jean-Baptiste. PRIMARY DISCHARGE DIAGNOSES: 1. Gastrointestinal bleed, secondary to pangastritis. 2. Chronic left extremity wound. SECONDARY DISCHARGE DIAGNOSES: 1. Multiple myeloma. 2. Atrial fibrillation. 3. Coronary artery disease. 4. Chronic kidney disease, stage 3. 5. Peripheral vascular disease. 6. History of transient ischemic attack. 7. Bilateral lower extremity neuropathy. 8. History of gastroesophageal reflux disease. 9. Congestive heart failure, last known ejection fraction of 35%. MEDICATIONS AT DISCHARGE: 1. Atorvastatin 80 mg daily. 2. Aspirin 81 mg daily. 3. Cholecalciferol 1000 units daily. 4. Carvedilol 6.25 mg b.i.d. 5. Levothyroxine 50 mcg daily. 6. Iron-polysaccharide, vitamin 150 mg daily. 7. Furosemide 40 mg daily. 8. Lyrica 75 mg b.i.d. 9. Potassium chloride 20 mEq daily. 10. Pantoprazole 40 mg p.o. b.i.d. This is a new medication. The patient's Pradaxa has been held and is currently still on hold pending a followup CBC next week and followup with Dr. Hernandez and/or Dr. Santos. The patient's clopidogrel has been discontinued. HOSPITAL COURSE OF STAY: For full details, please refer to the H and P provided by Sherif Lugo NP, on 10/13/16. In summary, Mr. Barton is an 86- year-old male, who presented to the ER with concern for black tarry stools and discoloration over a few weeks. The patient became more concerned because he experienced dizziness of positional change, as well as increased dyspnea with exertion. The patient's ER evaluation revealed a hemoglobin of 6.1 and a positive stool occult. Mr. Barton was admitted to the ICU and given 2 units of blood and started on a Protonix drip. He did have a bedside EGD by Dr. Foote. The EGD showed pangastritis, which was thought this was the most likely cause for his melena. The patient's CLOtest was negative. The patient' s reason for bleeding is unclear. However, he has been on triple therapy with Plavix, aspirin, and Pradaxa. The patient did receive Praxbind in the ER and of course Pradaxa, Plavix, and aspirin were held until the patient became more stable. I did touch base with Dr. aSmayoa, who performed an angioplasty in July of 2016. Also, in discussion with Dr. Hearn, it was felt that once the patient had stabilized that we could keep the patient on Protonix b.i.d., which he will have to continue indefinitely, and attempt to restart him back on his medications. However, it was agreed upon that the patient could not be maintained on 3 different therapies. We did discontinue the Plavix. The patient was restarted back on aspirin prior to discharge. We have continued to hold his Pradaxa for a recommended 5 to 7 days in order to ensure no further bleeding occurs. The patient was given a script for a followup CBC next week. He states he also has a scheduled appointment with Dr. Hernandez, at which time, he may be able to resume his Pradaxa. The patient was made aware of the benefits of the Pradaxa and obviously the bleeding risks should he resume his Pradaxa. However, given that he has asymptomatic atrial fibrillation, the Pradaxa does provide benefit for stroke prevention. He agrees that we discuss this with Dr. Hernandez. We did appreciate a Wound consult here in the hospital. The wound care nurse states that the skin dressing that is to the patient's chronic wound is intact and should not be removed. The patient has a followup with the wound clinic next week as previously scheduled. I did discuss with the patient that avoiding alcohol would be beneficial given his pangastritis. It does increase his risk for further bleeding and irritation of the stomach. The patient did verbalize understanding of this, but was somewhat reluctant to give up his daily beer. He does understand that he does need to continue on his pantoprazole b.i.d. In regards to the patient's chronic kidney disease, his creatinine is within the baseline. In regards to his atrial fibrillation, the patient remained in sinus rhythm during his stay here. His H and H improved following his 2 units, have remained stable. He is currently 8.0 and 25 and is due for followup CBC on 10/19/16. CONCERNS AT DISCHARGE: Mr. Barton will be discharged to home on 10/16/16 with a plan to call for a followup with Dr. Santos, as well as followup with Dr. Hernandez next week. He is to keep his wound care clinic appointment on of next week. OUTPATIENT NEEDS AND FOLLOWUP: The patient is to have a CBC drawn on Tuesday for followup evaluation of his hemoglobin and hematocrit. He is to discuss resuming his Pradaxa with his PCP or application counselor. DIET: Heart-healthy, low-sodium diet. ACTIVITY: As tolerated. CONDITION: Improved, stable. DISPOSITION: To home. Last documented vital signs prior to discharge, temperature 97.7, heart rate 63 , respiratory rate 16, blood pressure 120/51, O2 saturation is 97% on room air. TIME SPENT: Time spent on this discharge was approximately 45 minutes. Again, this is only a brief summary of the patient's hospital course of stay. For full details, please refer to the full medical record. If you have any further questions or need further assistance, please feel free to contact me at [phone]. AQUILES LEOS NP CC: Dr. Arielle Santos; Yasmine Hernandez* [id number]/[facility] #: [id number] [facility]PITALLaurence
== END 2016-10-16 15:40 | disposition home or self-care (01) | DRG 378 ==
LOC: ED 17:57 → ICU 21:16 → MED 10-14 16:46
PROVIDERS: ADMIT Hospitalist; ATTEND Internal Medicine
PROC: 30233N1 Transfusion of Nonautologous Red Blood Cells into Peripheral Vein, Percutaneous Approach (ICD-10-PCS; principal; 2016-10-13)
PROC: 30233R1 Transfusion of Nonautologous Platelets into Peripheral Vein, Percutaneous Approach (ICD-10-PCS; 2016-10-13)
PROC: 0DB98ZX Excision of Duodenum, Via Natural or Artificial Opening Endoscopic, Diagnostic (ICD-10-PCS; 2016-10-14)
DX: K29.61 Other gastritis with bleeding (principal); C90.00 Multiple myeloma not having achieved remission; I95.9 Hypotension, unspecified; I50.9 Heart failure, unspecified; G62.9 Polyneuropathy, unspecified; I48.91 Unspecified atrial fibrillation; D62 Acute posthemorrhagic anemia; N18.3 Chronic kidney disease, stage 3 (moderate); I25.10 Atherosclerotic heart disease of native coronary artery without angina pectoris; K21.9 Gastro-esophageal reflux disease without esophagitis; I73.9 Peripheral vascular disease, unspecified; Z82.49 Family history of ischemic heart disease and other diseases of the circulatory system; Z48.89 Encounter for other specified surgical aftercare; Z86.73 Personal history of transient ischemic attack (TIA), and cerebral infarction without residual deficits; Z95.810 Presence of automatic (implantable) cardiac defibrillator; Z98.49 Cataract extraction status, unspecified eye; Z88.8 Allergy status to other drugs, medicaments and biological substances; Z91.041 Radiographic dye allergy status; Z87.891 Personal history of nicotine dependence; Z79.82 Long term (current) use of aspirin; Z83.3 Family history of diabetes mellitus; Z82.5 Family history of asthma and other chronic lower respiratory diseases; Z87.11 Personal history of peptic ulcer disease
CPT/HCPCS: 36415; 80048; 80053; 82272; 84484; 85014; 85018; 85025; 85060; 85610; 85730; 86850; 86900; 86901; 86922; 87077; 87641; 93005; 94760; A9270-GY; J1940; J2250; P9035; P9040

== ENCOUNTER → 2017-01-27 12:33 | Emergency (ER) | payer MEDICARE ==
[~2017-01-27 12:33] MED LIST: Cefepime(*) 2 GM in NS 0.9% 50 ML* 50 ML IVPB ONE; NS 0.9% 1000 ML* 1,000 ML IV SCH; NS 0.9% 50 ML* 50 ML ONE; Vancomycin(*) 1,000 MG - ED ONCE IVPB ONE; Vancomycin(*) 1,000 MG VIAL IVPB SCH; metroNIDAZOLE IV 500 MG/100ML* 500 MG/100 ML BAG IVPB ONE
[2017-01-27 17:22] LABS: Hematocrit 33 % (42-52); Hemoglobin 10.8 g/dl (14.0-18.0); Mean Corpuscular HGB Conc 33 g/dl (31-36); Mean Corpuscular Hemoglobin 31 pg (27-31); Mean Corpuscular Volume 94 fL (80-94); Mean Platelet Volume 11 um3 (7.4-10.4); Red Blood Count 3.48 10^6/ul (4.0-5.4); Red Cell Distribution Width 21 % (10.5-15); White Blood Count 9.5 10^3/ul (3.5-10.8)
[2017-01-27 17:24] LABS: Add Diff/Slide Review? Slide Review Added; Comments Flag Yes
[2017-01-27 17:33] LABS: Albumin 3.8 g/dL (3.2-5.2); BUN/Creatinine Ratio 31.3 (8-20); C Reactive Protein 25.07 mg/L (< 5.00); EGFR African American 45.5 (>60); EGFR Non-African American 35.4 (>60); Globulin 4.5 g/dL (2-4); Potassium 3.3 mmol/L (3.5-5.0); Total Bilirubin 1.8 mg/dL (0.2-1.0); Total Protein 8.3 g/dL (6.4-8.9)
--- NOTE | 2017-01-27 17:39 | RAD ---
Indication: Wound infection. Possible sepsis. Comparison: July 06, 2016 chest radiograph. Technique: Upright AP 1705 hours. Report: Severe cardiomegaly. 2 leads of LEFT chest wall pacemaker device extend to the level of the RIGHT ventricle without change. Unremarkable central pulmonary vasculature. Unchanged mild prominence of the interstitial markings. No pulmonary infiltrate, pleural effusion, or pneumothorax. IMPRESSION: Severe cardiomegaly with interval increase. No compelling evidence for pulmonary edema. Pericardial effusion should be considered.
--- NOTE | 2017-01-27 17:42 | RAD ---
Indication: LEFT foot abscess drained and culture at the wound clinic. Recurrent infection. Comparison: April 27, 2016 radiographs. Technique: AP, lateral, and oblique views LEFT foot. Report: Bone density appears decreased throughout. No focal osteolysis or periosteal reaction evident. Negative for fracture or dislocation. Second through fifth hammertoe deformities. Diffuse vascular calcifications. Soft tissue swelling most prominent at the plantar aspect of the forefoot with associated subcutaneous emphysema. IMPRESSION: Soft tissue swelling and subcutaneous emphysema at the plantar aspect of the forefoot. No compelling radiographic evidence for osteomyelitis. If there is persistent clinical concern for occult osteomyelitis consider follow-up MRI or three-phase bone scan in setting of contraindication to MRI.
--- NOTE | 2017-01-27 17:56 | ED ---
Skin Complaint - HPI Summary HPI Summary: 86M presents with wound on left foot that was evaluated by wound clinic. He had sore on left foot that had improved until this weekend when he stated to have pain with walking. Was seen at wound clinic today were had tender fluctuant area that dr Sullivan drained and cultured. sent for IV antibiotics and rule out ostemeyelitis. He states that he had a previous wound there that was almost healed. on Tuesday he was walking and noticed pain in the area. He states that he noticed some redness so he went to the wound clinic. He denies any fever. He is not diabetic and has no history of neuropathy. no history of injury. no abrasion previously present there. He denies any chest pain or SOB. He is on an anticoagulants. - History of Current Complaint Chief Complaint: EDExtremityLower Time Seen by Provider: 01/27/17 16:39 Stated Complaint: POSS INFECTION LEFT FOOT Pain Intensity: 0 - Additional Pertinent History Primary Care Physician: DILMA - Allergy/Home Medications Allergies/Adverse Reactions: Allergies Allergy/AdvReac Type Severity Reaction Status Date / Time Allopurinol [From Zyloprim] Allergy Intermediate Rash Verified 09/08/15 06:54 Esomeprazole [From Nexium] Allergy Intermediate Rash Verified 09/08/15 06:54 Iodinated Diagnostic Agents Allergy See Comment Verified 10/16/16 08:02 Spironolactone Allergy Unknown Verified 09/08/15 06:54 Reaction Details IV dye Allergy Fever Uncoded 10/14/16 09:36 PMH/Surg Hx/FS Hx/Imm Hx Endocrine/Hematology History: Reports: Hx Anticoagulant Therapy - PRADAXA, Hx Anemia - LOW IRON ON MEDICATION Denies: Hx Diabetes Cardiovascular History: Reports: Hx Auto Implanted Cardiovert Defib - BY DR BHANDARI/BERTHA AT [facility] [place] Hx Congestive Heart Failure - OXYGEN 2 LITERS VIA N/C CONTINOUSLY, Hx Coronary Artery Disease, Hx Pacemaker/ICD, Hx Valvular Heart Disease - TRICUSPID INSUFFICENCY, Other Cardiovascular Problems/Disorders - CHF Denies: Hx Hypertension, Hx Syncope - NEAR SYNCOPE Comment Only: Hx Hypotension - TACHY-FABRICIO SYNDROME, AFIB. Respiratory History: Reports: Other Respiratory Problems/Disorders - OXYGEN AT 2 LITERS VIA NASAL CANNULA R/T CHF Denies: Hx Chronic Obstructive Pulmonary Disease (COPD) GI History: Reports: Hx Ulcer - duodenal ulcer, Other GI Disorders - DOUDINAL ULCERS, ON PROTONIX History: Denies: Hx Dialysis, Hx Renal Disease Musculoskeletal History: Reports: Hx Arthritis - BILATERAL HANDS AND FINGERS, Hx Orthopedic Injury - RIGHT FOOT BOOT Denies: Hx Back Problems Sensory History: Reports: Hx Contacts or Glasses - reading glasses Denies: Hx Cataracts, Hx Eye Injury, Hx Eye Prosthesis, Hx Glaucoma, Hx Legally Blind, Hx Macular Degeneration, Hx Vision Problem, Hx Deafness, Hx Hearing Aid, Hx Hearing Problem, Other Sensory Impairments Opthamlomology History: Reports: Hx Contacts or Glasses - reading glasses Denies: Hx Cataracts, Hx Eye Injury, Hx Eye Prosthesis, Hx Glaucoma, Hx Legally Blind, Hx Macular Degeneration, Hx Vision Problem, Other Sensory Impairments Neurological History: Reports: Hx Transient Ischemic Attacks (TIA) Denies: Hx Dementia, Hx Seizures - Cancer History Cancer Type, 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) Hx Chemotherapy: Yes - ORAL Hx Radiation Therapy: Yes - MULTIPLE LOHI 2001 - Surgical History Surgery Procedure, Year, and Place: PACEMAKER/DEFIBULATOR Hx Anesthesia Reactions: No Infectious Disease History: No Infectious Disease History: Denies: Hx of Known/Suspected MRSA, Hx Shingles, Hx Tuberculosis, History Other Infectious Disease, Traveled Outside the [place] in Last 30 Days - Family History Known Family History: Negative: Cardiac Disease - Social History Alcohol Use: Occasionally Alcohol Amount: 1 beer per day Substance Use Type: Reports: None Smoking Status (MU): Former Smoker Type: Cigarettes Amount Used/How Often: 2 PPD FOR ABOUT 10 YEARS Length of Time of Smoking/Using Tobacco: 10 YEARS Have You Smoked in the Last Year: No Review of Systems Negative: Fever Negative: Chest Pain Negative: Shortness Of Breath Positive: Other - wound on left foot All Other Systems Reviewed And Are Negative: Yes Physical Exam Triage Information Reviewed: Yes Vital Signs On Initial Exam: Initial Vitals Temp Pulse Resp BP Pulse Ox 97.7 F 64 20 142/127 100 01/27/17 12:51 01/27/17 12:51 01/27/17 12:51 01/27/17 12:51 01/27/17 12:51 Vital Signs Reviewed: Yes Appearance: Positive: Well-Appearing Skin: Positive: Warm, Dry, Other - open wound on ball of left foot with bloody drainage, 5cm surrounding erythema Head/Face: Positive: Normal Head/Face Inspection Eyes: Positive: Normal, Conjunctiva Clear ENT: Positive: Normal ENT inspection, Pharynx normal, TMs normal Respiratory/Lung Sounds: Positive: Clear to Auscultation, Breath Sounds Present Cardiovascular: Positive: Normal, RRR Musculoskeletal: Positive: Strength/ROM Intact - left foot, Other - good pulses , capillary refill<2 secs, sensation grossly intact - [place] Coma Scale Coma Scale Total: 15 Diagnostics - Vital Signs Vital Signs Temp Pulse Resp BP Pulse Ox 01/27/17 16:22 98.3 F 63 16 123/79 100 01/27/17 16:00 97.4 F 67 16 126/95 01/27/17 12:51 97.7 F 64 20 142/127 100 - Laboratory Lab Results: Lab Results 01/27/17 01/27/17 01/27/17 Range/Units 16:49 16:49 16:49 WBC (3.5-10.8) 10^3/ul RBC (4.0-5.4) 10^6/ul Hgb (14.0-18.0) g/dl Hct (42-52) % MCV (80-94) fL MCH (27-31) pg MCHC (31-36) g/dl RDW (10.5-15) % Plt Count (150-450) 10^3/ul MPV (7.4-10.4) um3 Neut % (Auto) (38-83) % Lymph % (Auto) (25-47) % [place] % (Auto) (1-9) % Eos % (Auto) (0-6) % Baso % (Auto) (0-2) % Absolute Neuts (auto) (1.5-7.7) 10^3/ul Absolute Lymphs (auto) (1.0-4.8) 10^3/ul Absolute Monos (auto) (0-0.8) 10^3/ul Absolute Eos (auto) (0-0.6) 10^3/ul Absolute Basos (auto) (0-0.2) 10^3/ul Absolute Nucleated RBC 10^3/ul Nucleated RBC % ESR INR (Anticoag Therapy) 1.74 H (0.89-1.11) APTT 69.9 H (26.0-36.3) seconds Sodium 135 (133-145) mmol/L Potassium 3.3 L (3.5-5.0) mmol/L Chloride 100 L (101-111) mmol/L Carbon Dioxide 22 (22-32) mmol/L Anion Gap 13 H (2-11) mmol/L BUN 57 H (6-24) mg/dL Creatinine 1.82 H (0.67-1.17) mg/dL Est GFR ( Amer) 45.5 (>60) Est GFR (Non-Af Amer) 35.4 (>60) BUN/Creatinine Ratio 31.3 H (8-20) Glucose 94 (70-100) mg/dL Lactic Acid (0.5-2.0) mmol/L Calcium 9.0 (8.6-10.3) mg/dL Total Bilirubin 1.80 H (0.2-1.0) mg/dL AST 37 (13-39) U/L ALT 28 (7-52) U/L Alkaline Phosphatase 128 H (34-104) U/L C-Reactive Protein 25.07 H (< 5.00) mg/L B-Natriuretic Peptide 912 H ( - 100) pg/mL Total Protein 8.3 (6.4-8.9) g/dL Albumin 3.8 (3.2-5.2) g/dL Globulin 4.5 H (2-4) g/dL Albumin/Globulin Ratio 0.8 L (1-3) Lipase 48 (11.0-82.0) U/L 01/27/17 01/27/17 Range/Units 16:49 16:49 WBC 9.5 (3.5-10.8) 10^3/ul RBC 3.48 L (4.0-5.4) 10^6/ul Hgb 10.8 L (14.0-18.0) g/dl Hct 33 L (42-52) % MCV 94 (80-94) fL MCH 31 (27-31) pg MCHC 33 (31-36) g/dl RDW 21 H (10.5-15) % Plt Count 94 L (150-450) 10^3/ul MPV 11 H (7.4-10.4) um3 Neut % (Auto) 82.2 (38-83) % Lymph % (Auto) 7.7 L (25-47) % [place] % (Auto) 9.7 H (1-9) % Eos % (Auto) 0.2 (0-6) % Baso % (Auto) 0.2 (0-2) % Absolute Neuts (auto) 7.8 H (1.5-7.7) 10^3/ul Absolute Lymphs (auto) 0.7 L (1.0-4.8) 10^3/ul Absolute Monos (auto) 0.9 H (0-0.8) 10^3/ul Absolute Eos (auto) 0 (0-0.6) 10^3/ul Absolute Basos (auto) 0 (0-0.2) 10^3/ul Absolute Nucleated RBC 0 10^3/ul Nucleated RBC % 0 ESR Pending INR (Anticoag Therapy) (0.89-1.11) APTT (26.0-36.3) seconds Sodium (133-145) mmol/L Potassium (3.5-5.0) mmol/L Chloride (101-111) mmol/L Carbon Dioxide (22-32) mmol/L Anion Gap (2-11) mmol/L BUN (6-24) mg/dL Creatinine (0.67-1.17) mg/dL Est GFR ( Amer) (>60) Est GFR (Non-Af Amer) (>60) BUN/Creatinine Ratio (8-20) Glucose (70-100) mg/dL Lactic Acid 1.9 (0.5-2.0) mmol/L Calcium (8.6-10.3) mg/dL Total Bilirubin (0.2-1.0) mg/dL AST (13-39) U/L ALT (7-52) U/L Alkaline Phosphatase (34-104) U/L C-Reactive Protein (< 5.00) mg/L B-Natriuretic Peptide ( - 100) pg/mL Total Protein (6.4-8.9) g/dL Albumin (3.2-5.2) g/dL Globulin (2-4) g/dL Albumin/Globulin Ratio (1-3) Lipase (11.0-82.0) U/L Result Diagrams: 01/27/17 16:49 01/27/17 16:49 Lab Statement: Any lab studies that have been ordered have been reviewed, and results considered in the medical decision making process. - Radiology foot Xray Interpretation: Positive (See Comments) - IMPRESSION: Soft tissue swelling and subcutaneous emphysema at the plantar aspect of the forefoot. No compelling radiographic evidence for osteomyelitis. If there is persistent clinical concern for occult osteomyelitis consider follow-up MRI or three-phase bone scan in setting of contraindication to MRI. 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 He had sore on left foot that had improved until this weekend when he stated to have pain with walking. Was seen at wound clinic today were had tender fluctuant area that dr Sulilvan drained and cultured. sent for IV antibiotics and rule out ostemeyelitis. He states that he had a previous wound there that was almost healed. on Tuesday he was walking and noticed pain in the area. He states that he noticed some redness so he went to the wound clinic. He denies any fever. He is not diabetic and has no history of neuropathy. no history of injury. on exam has small open area on ball of foot near first metarsal that is draining bloody drainage, surrounding erythema with warmth to touch. labs wbc and lactic normal. afebrile. xray shows soft tissue swelling. ekg shows ST elevation but no chest pain and was ordered because potential was going to be admitted. patient has pacer and believes has history of this. did not get troponin as no chest pain or other symptoms and will likely be elevated due to renal insuffiency. spoke with dr reynolds does not believe could have developed osteo at this time, recommend oral antibiotics and follow up with wound clinic. patient understands and agrees with plan. - Differential Diagnoses - Skin Complaint Differential Diagnoses: Abscess, Cellulitis, Other - osteomyelitis - Diagnoses Provider Diagnoses: Cellulitis and abscess of foot - Physician Notifications Discussed Care Of Patient With: dr reynolds Time Discussed With Above Provider: 17:00 - dr reynolds d/c home, return to ED if develop worsening symptoms Discharge - Discharge Plan Condition: Good Disposition: HOME Prescriptions: Cephalexin CAP* [Keflex CAP*] 500 mg PO TID #42 cap DOXYcycline CAP(*) [DOXYcycline 100MG CAP(*)] 100 mg PO BID #28 cap Patient Education Materials: Wound Infection (ED) Referrals: Arielle Santos MD [Primary Care Provider] - Additional Instructions: Take Keflex three times a day for 14 days Take doxycycline twice a day for 14 days, take with food, avoid sun exposure Follow up with wound clinic within a week Take Tylenol for pain every 6 hours Keep area covered Return to ED if develop fever, area of redness spreads, drainage worsenings or any new or worsening symptoms
[2017-01-27 18:15] LABS: Schistocytes 1+
[2017-01-27 18:16] LABS: Add Path Review? YES
[2017-01-27 18:33] LABS: Erythrocyte Sed Rate 53 mm/Hr (0-40)
[2017-01-27 21:34] VITALS: BP 130/64
== END | disposition home or self-care (01) ==
LOC: ED 12:33
DX: L03.116 Cellulitis of left lower limb (principal); L02.619 Cutaneous abscess of unspecified foot; Z79.01 Long term (current) use of anticoagulants; Z87.891 Personal history of nicotine dependence
CPT/HCPCS: 36415; 71010; 80053; 83605; 83690; 83880; 85025; 85060; 85610; 85652; 85730; 86140; 87040; 93005; 99283; J0692; J3370

== ENCOUNTER 2017-03-30 23:47 | Emergency (ER) | payer MEDICARE, OTHER ==
[2017-03-31 00:52] VITALS: BP 130/57
--- NOTE | 2017-03-31 07:50 | RAD ---
HISTORY: Fall, anticoagulation COMPARISONS: July 06, 2013 TECHNIQUE: Multiple contiguous axial CT scans were obtained of the head without intravenous contrast. FINDINGS: HEMORRHAGE/INFARCT: There is no hemorrhage or acute infarct. MASSES/SHIFT: There is no mass or shift. EXTRA-AXIAL SPACES: There are no extra-axial fluid collections. SULCI AND VENTRICLES: The sulci and ventricles are normal in size and position for the patient's stated age. CEREBRUM: There is hypoattenuation of the periventricular and subcortical white matter. Chronic lacunar infarcts are noted. BRAINSTEM: There are no focal parenchymal abnormalities. CEREBELLUM: There are no focal parenchymal abnormalities. VESSELS: There is calcification of the cavernous segments of the internal carotid arteries bilaterally and of the distal vertebral arteries bilaterally. PARANASAL SINUSES: The paranasal sinuses are clear. ORBITS: The orbits are unremarkable. BONES AND SOFT TISSUE: No bone or soft tissue abnormalities are noted. OTHER: None IMPRESSION: NO ACUTE INTRACRANIAL PATHOLOGY. DIFFUSE INVOLUTIONAL CHANGE WITH CHRONIC SMALL VESSEL ISCHEMIC CHANGES.
--- NOTE | 2017-04-11 15:03 | ED ---
Nadir Baca Nilda, scribed for Kush John MD on 03/31/17 at 0009 . Adult Trauma - HPI Summary HPI Summary: This patient is an 87 year old M [facility] accompanied by daughter s/p fall a few hours ago. Per daughter, patient was sitting in his wheel chair which came out from under him when he fell asleep and tipped forward, hitting his head on the wall and causing abrasion to scalp. The patient rates the pain 2/10 in severity. Patient denies headache and LOC. He is on blood thinners. - History of Current Complaint Chief Complaint: EDHeadInjury Stated Complaint: FALL Time Seen by Provider: 03/31/17 00:02 Hx Obtained From: Patient Mechanism of Injury: Fall Ambulatory at the Scene: N/A Loss of Consciousness: no loss of consciousness Onset/Duration: Started Hours Ago Current Severity: Mild Pain Intensity: 2 Pain Scale Used: 0-10 Numeric Location: Head Associated Signs & Symptoms: Positive: Other: - hit head, negative headache and LOC - Additional Pertinent History Primary Care Physician: DILMA - Allergy/Home Medications Allergies/Adverse Reactions: Allergies Allergy/AdvReac Type Severity Reaction Status Date / Time Allopurinol [From Zyloprim] Allergy Intermediate Rash Verified 04/03/17 00:36 Esomeprazole [From Nexium] Allergy Intermediate Rash Verified 04/03/17 00:36 Iodinated Diagnostic Agents Allergy See Comment Verified 04/03/17 00:36 Spironolactone Allergy Unknown Verified 04/03/17 00:36 Reaction Details IV dye Allergy Fever Uncoded 04/03/17 00:36 PMH/Surg Hx/FS Hx/Imm Hx Endocrine/Hematology History: Reports: Hx Anticoagulant Therapy - PRADAXA, Hx Anemia - LOW IRON ON MEDICATION Denies: Hx Diabetes Cardiovascular History: Reports: Hx Auto Implanted Cardiovert Defib - BY DR BHANDARI/BERTHA AT [facility], Hx Congestive Heart Failure - OXYGEN 2 LITERS VIA N/C CONTINOUSLY, Hx Coronary Artery Disease, Hx Pacemaker/ICD, Hx Valvular Heart Disease - TRICUSPID INSUFFICENCY, Other Cardiovascular Problems/Disorders - CHF Denies: Hx Hypertension, Hx Syncope - NEAR SYNCOPE Comment Only: Hx Hypotension - TACHY-FABRICIO SYNDROME, AFIB. Respiratory History: Reports: Other Respiratory Problems/Disorders - OXYGEN AT 2 LITERS VIA NASAL CANNULA R/T CHF Denies: Hx Chronic Obstructive Pulmonary Disease (COPD) GI History: Reports: Hx Ulcer - duodenal ulcer, Other GI Disorders - DOUDINAL ULCERS, ON PROTONIX History: Denies: Hx Dialysis, Hx Renal Disease Musculoskeletal History: Reports: Hx Arthritis - BILATERAL HANDS AND FINGERS, Hx Orthopedic Injury - RIGHT FOOT BOOT Denies: Hx Back Problems Sensory History: Reports: Hx Contacts or Glasses - reading glasses Denies: Hx Cataracts, Hx Eye Injury, Hx Eye Prosthesis, Hx Glaucoma, Hx Legally Blind, Hx Macular Degeneration, Hx Vision Problem, Hx Deafness, Hx Hearing Aid, Hx Hearing Problem, Other Sensory Impairments Opthamlomology History: Reports: Hx Contacts or Glasses - reading glasses Denies: Hx Cataracts, Hx Eye Injury, Hx Eye Prosthesis, Hx Glaucoma, Hx Legally Blind, Hx Macular Degeneration, Hx Vision Problem, Other Sensory Impairments Neurological History: Reports: Hx Transient Ischemic Attacks (TIA) Denies: Hx Dementia, Hx Seizures - Cancer History Cancer Type, 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) Hx Chemotherapy: Yes - ORAL Hx Radiation Therapy: Yes - MULTIPLE MYLOMA 2001 - Surgical History Surgery Procedure, Year, and Place: PACEMAKER/DEFIBULATOR Hx Anesthesia Reactions: No Infectious Disease History: No Infectious Disease History: Denies: Hx of Known/Suspected MRSA, Hx Shingles, Hx Tuberculosis, History Other Infectious Disease, Traveled Outside the [place] in Last 30 Days - Family History Known Family History: Negative: Cardiac Disease - Social History Lives: With Family Alcohol Use: Occasionally Alcohol Amount: 1 beer per day Substance Use Type: Reports: None Smoking Status (MU): Former Smoker Type: Cigarettes Amount Used/How Often: 2 PPD FOR ABOUT 10 YEARS Length of Time of Smoking/Using Tobacco: 10 YEARS Have You Smoked in the Last Year: No Review of Systems Positive: Other - fall Positive: Other - scalp abrasion Neurological: Other - negative LOC Negative: Headache All Other Systems Reviewed And Are Negative: Yes Physical Exam - Summary Physical Exam Summary: Appearance: Well-appearing, Well-nourished Sin: Warm, 2 abrasion on scalp 5 cm long each superficial. Eyes: Normal, PATRICIA, EOMI ENT: Normal Neck: Supple, nontender Respiratory: Clear to auscultation Cardiovascular: S1, S2, no murmur, no rub, no gallop Abdomen: Soft, nontender Bowel: Present Musculoskeletal: no edema, no pronator drift, middle stitcher strength symmetrical, 5/5 motor exam upper extremities Neurological: A&Ox3, answer questions appropriately, no amnesia for event, [place] 15, cranial nerves 2-12 wnl Triage Information Reviewed: Yes Vital Signs On Initial Exam: Initial Vitals Temp Pulse Resp BP Pulse Ox 98.1 F 66 16 143/82 100 03/30/17 23:55 03/30/17 23:55 03/30/17 23:55 03/30/17 23:55 03/30/17 23:55 Vital Signs Reviewed: Yes - Sae Coma Scale Coma Scale Total: 15 Diagnostics - Vital Signs Vital Signs Temp Pulse Resp BP Pulse Ox 03/30/17 23:55 98.1 F 66 16 143/82 100 - Laboratory Lab Statement: Any lab studies that have been ordered have been reviewed, and results considered in the medical decision making process. - CT Brain CT Interpretation Completed By: Radiologist - Brain CT per radiologist reveals: no evidence of acute pathology. ED physician has reviewed this radiology report and agrees. Adult Trauma Course/Dx - Course Course Of Treatment: This patient is an 87 year old M BIBA to [facility] accompanied by daughter s/p fall a few hours ago. Per daughter, patient was sitting in his wheel chair which came out from under him when he fell asleep and tipped forward , hitting his head on the wall and causing abrasion to scalp. The patient rates the pain 2/10 in severity. Patient denies headache and LOC. He is on blood thinners. Brain CT per radiologist reveals: no evidence of acute pathology. Dx fall and minor head trauma. Patient is stable and will be D/C. Pt understand and is agreeable to plan. - Diagnoses Provider Diagnoses: Minor head trauma, Fall Discharge - Discharge Plan Condition: Fair Disposition: HOME Discharge Disposition Comment: home The documentation as recorded by the Nadir engle Nilda accurately reflects the service I personally performed and the decisions made by me, Kush John MD.
== END 2017-03-31 01:14 | disposition home or self-care (01) ==
LOC: ED 23:47
DX: S09.90XA Unspecified injury of head, initial encounter (principal); W19.XXXA Unspecified fall, initial encounter; Y93.9 Activity, unspecified; Y92.9 Unspecified place or not applicable; Z87.891 Personal history of nicotine dependence; Z79.01 Long term (current) use of anticoagulants
CPT/HCPCS: 70450; 99282

== ENCOUNTER 2017-04-03 00:26 | Inpatient (IN) | payer MEDICARE, OTHER ==
[2017-04-03] MEDS ORDERED: Morphine ORAL CONCENTRATE* 200 MG/10 ML UDC PO ONE (01:12)
[2017-04-03] MEDS ORDERED: Morphine ORAL CONCENTRATE* 5 MG/0.25 ML ORAL.SYRIN SL ONE (01:28)
[2017-04-03 04:34] LABS: Hematocrit 30 % (42-52); Hemoglobin 9.8 g/dl (14.0-18.0); Mean Corpuscular HGB Conc 33 g/dl (31-36); Mean Corpuscular Hemoglobin 34 pg (27-31); Mean Corpuscular Volume 101 fL (80-94); Mean Platelet Volume 11 um3 (7.4-10.4); Red Blood Count 2.93 10^6/ul (4.0-5.4); Red Cell Distribution Width 19 % (10.5-15); White Blood Count 9.7 10^3/ul (3.5-10.8)
[2017-04-03 04:42] LABS: BUN/Creatinine Ratio 34.8 (8-20); Calcium 9.6 mg/dL (8.6-10.3); EGFR African American 40.5 (>60); EGFR Non-African American 31.5 (>60); Potassium 3.9 mmol/L (3.5-5.0)
--- NOTE | 2017-04-03 07:51 | RAD ---
INDICATION: Multiple falls. History of multiple myeloma. Basilar disease. COMPARISON: CT chest same date TECHNIQUE: Noncontrast axial source images were acquired from the level hemidiaphragms to the symphysis pubis. Lung bases: There is a right-sided pneumothorax and there is a moderate right-sided pleural effusion with right-sided rib fractures as described on CT the chest. The left lung base is essentially clear. There is cardiomegaly with a small pericardial effusion. There is pacemaker artifact. Liver: The liver is normal in size. Noncontrast imaging shows no evidence of a hepatic mass or ductal dilatation. Gallbladder: There are no calcified gallstones. There is no evidence of wall thickening or pericholecystic fluid.. Spleen: The spleen is normal in size. The noncontrast CT appearance is normal. Pancreas: Noncontrast imaging shows no pancreatic mass or ductal dilitation. Adrenal glands: No masses are identified. Kidneys/Bladder: There is no evidence of nephrolithiasis or CT evidence of hydronephrosis. Noncontrast imaging shows multiple, bilateral, renal cysts. There are bladder diverticula. Adenopathy: There is no evidence of intraperitoneal or retroperitoneal adenopathy. Evaluation is limited without oral contrast. Fluid collections: Moderate ascites. Vessels: There are advanced atherosclerotic changes of the aorta and iliac vessels. There is no focal aneurysm. The IVC appears normal Pelvic organs: Mild prostatic enlargement GI tract: Evaluation of the bowel is limited without oral contrast. There are no gross abnormalities in the upper GI tract. There are moderate diverticula of the sigmoid colon. Soft tissues: Small amount of subcutaneous edema.. Osseous structures: There are no acute osseous findings. IMPRESSION: 1. Right-sided pneumothorax, rib fractures, and effusion. Please refer to separate CT chest report. 2. Moderate ascites. 3. Bladder diverticulum 4. Sigmoid diverticula.
--- NOTE | 2017-04-03 07:58 | RAD ---
INDICATION: Multiple falls. Pneumothorax. COMPARISON: Chest x-ray April 03, 2017 TECHNIQUE: Noncontrast axial source images were obtained from the thoracic inlet to the hemidiaphragms. Coronal and sagittal reconstructed images were acquired. There is significant jugular venous distention. The thyroid appears normal.. Chest wall: There is osteopenia with a mild wedge compression deformity of T5 which is likely remote. Her multiple right-sided rib fractures. There are minimally displaced fractures of the second through seventh ribs, the ninth rib, and the 11th rib. There is no gross supraclavicular, infraclavicular, or axillary lymphadenopathy. Lungs : There is a moderate-sized right-sided pneumothorax that mediastinal shift. There is compression atelectasis in the right lung base. Left lung is grossly clear. There are underlying emphysematous changes, however.. Cardiomediastinal structures: The heart is enlarged with large pericardial effusion measuring up to 3 cm at the base the heart. There is pacemaker artifact. There are advanced underlying aortic intimal calcifications without evidence of focal aneurysm. Pleura : Moderate sized right-sided pleural effusion. Other: Upper abdominal findings are described in the separate CT abdomen report. IMPRESSION: 1. Multiple right-sided rib fractures may result in a flail chest. 2. Moderate-sized right-sided pneumothorax without mediastinal shift. 3. Moderate-sized right-sided pleural effusion with mild right basilar atelectasis. 4. Cardiomegaly with large pericardial effusion. 5. COPD
--- NOTE | 2017-04-03 08:09 | RAD ---
INDICATION: Pneumothorax COMPARISON: CT chest April 03, 2017; chest x-ray April 03, 2017 TECHNIQUE: An AP portable view obtained at 0700 hours is submitted. FINDINGS: Bones/Soft Tissues: There are multiple right-sided rib fractures better appreciated on the concurrent CT chest. There is pacemaker artifact. Cardiomediastinal: The correct silhouette is enlarged cyst with cardiomegaly. The patient also has a known pericardial effusion.. Lungs: Basilar airspace disease. Right-sided pneumothorax, unchanged. Mediastinal shift. Pleura: Moderate pleural effusion. Other: None IMPRESSION: RIGHT-SIDED RIB FRACTURES AND PNEUMOTHORAX, UNCHANGED. ENLARGED CARDIAC SILHOUETTE. RIGHT-SIDED EFFUSION. NO INTERVAL CHANGES
--- NOTE | 2017-04-03 08:28 | RAD ---
INDICATION: Right rib pain COMPARISON: None TECHNIQUE: Routine frontal, Y and axial views were obtained. FINDINGS: No acute fractures seen. The shoulder is high riding consistent rotator cuff tear. There is mild a.c. and glenohumeral osteoarthritis. IMPRESSION: ROTATOR CUFF TEAR. NO ACUTE FINDINGS.
--- NOTE | 2017-04-03 08:30 | RAD ---
INDICATION: Fall. Right chest pain COMPARISON: Chest x-ray January 27, 2017; CTA chest same date TECHNIQUE: An AP seated portable view obtained at 0152 hours is submitted. FINDINGS: Bones/Soft Tissues: There are right-sided rib fractures best evaluated on the concurrent CT chest. There is a left-sided pacemaker/defibrillator. Cardiomediastinal: Marked enlargement of the cardiomediastinal.. Lungs: Right basilar infiltrate small pneumothorax without mediastinal shift. Limited evaluation left lung base due to the enlarged cardiac silhouette. Pleura: Moderate sized right-sided effusion. Other: None IMPRESSION: ENLARGED CARDIAC SILHOUETTE. PNEUMOTHORAX. RIB FRACTURES.
[2017-04-03] MEDS ORDERED: Temazepam CAP* 15 MG PO PRN (08:35)
[2017-04-03] MEDS ORDERED: Acetaminophen TAB* 325 MG PO PRN (08:35)
[2017-04-03] MEDS: Morphine ORAL CONCENTRATE* 5 MG/0.25 ML ORAL.SYRIN PO PRN ×6 (08:59→22:16)
--- NOTE | 2017-04-03 10:57 | CONS ---
CC: [facility]; Dr. Arielle Santos; Dr. Wai Rosa; Dr. Yasmine Hernandez * CONSULTATION REPORT: DATE OF SERVICE: 04/03/17 REFERRING PROVIDERS: 1. Dr. Zaira Gonsalez, hospitalist. 2. Dr. John, emergency room physician. REASON FOR CONSULTATION: Fall with right-sided rib fractures and small right- sided pneumothorax. HISTORY OF PRESENT ILLNESS: Mr. Bret Barton is a very pleasant 87-year- old gentleman with multiple medical issues including congestive heart failure, chronic renal insufficiency, coronary artery disease, atrial fibrillation, peripheral vascular disease, who only 1 week ago was placed on hospice due to his multiple medical conditions and the feeling that he was not a candidate for dialysis. He also has a do not resucitate order on his chart. He uses a wheelchair mainly at home and is on home oxygen. He did go to the [employer] last night with his daughter. He lives alone fairly independently; however, he was in the kitchen last night taking his medicines where he fell from a standing positioning hitting the right side of his chest and shoulder on the counter top. There was no loss of consciousness. He was brought to the emergency room in order to be awake and alert with stable vital signs. He underwent workup that included a plain chest x-ray, which showed a small right- sided pneumothorax with a possible small right hemothorax. Subsequent to this, a chest CT was obtained, which showed a moderate sized right pneumo- thorax with some fluid in the right chest and multiple rib fractures on the right. CT scan of the abdomen and pelvis showed fluid throughout. He has known ascites. None of these studies were done with IV contrast. He has remained stable in the emergency room and his daughter is present with him. Surgical consultation was obtained. PAST MEDICAL HISTORY: 1. Multiple myeloma. 2. Atrial fibrillation. 3. Chronic kidney disease stage 3. 4. Peripheral vascular disease. 5. Congestive heart failure. 6. Bilateral lower extremity neuropathy. 7. History of TIA. 8. History of coronary artery disease. 9. Atrial fibrillation. PAST SURGICAL HISTORY: 1. Pacer/AICD placement 2. Lower extremity angioplasty. 3. Cataract replacement. MEDICATIONS: Include: 1. Plavix. 2. Lipitor. 3. Aspirin. 4. Vitamin D. 5. Coreg. 6. Synthroid. 7. Lasix. 8. Pradaxa. 9. Lyrica. 10. Potassium. 11. Protonix. ALLERGIES: ALLOPURINOL, NEXIUM, SPIRONOLACTONE, and IV DYE. SOCIAL HISTORY: He does not drink. He does not smoke. He lives independently. He has a daughter who lives in the area. She is the surrogate decision maker. 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 REVIEW OF SYSTEMS: Otherwise unremarkable. He is on oxygen at home. He is mainly in a wheelchair throughout the day, but he will take several steps at home for transfers. PHYSICAL EXAM: Temperature 98.7, pulse 67, blood pressure 144/74, oxygen saturation 100% on 2 L nasal cannula. In general, he is an elderly male, cachetic appearing, but awake, alert, very conversive and a very pleasant. He is oriented to person, place, and time. Scalp, he has a recent laceration from a fall with Steri-Strips in place. Trachea was midline. He has jugular venous distention bilaterally. There is no crepitance along the chest wall anteriorly or posteriorly. He has a pacemaker in place on the left anterior chest wall. He has some slight decreased breath sounds on the right compared to the left. However, overall breath sounds are decreased throughout both anteriorly and posteriorly. I appreciate his tenderness along the posterior right rib cage and anteriorly. There was no ecchymosis or hematoma or significant swelling. I appreciate no rib instability. His abdomen is protuberant and soft. It appears to be fluid filled. There is diminished bowel sounds throughout. No prior surgical incisions or hernias are noted. Psychiatric: He is awake, alert , and oriented x3. He appears to have normal judgment and insight. LABORATORY DATA: I reviewed all the CT scans of the chest, abdomen, and pelvis as well as the plain chest x-ray. A repeat chest x-ray done 4 to 5 hours after admission shows once again no change in the size of the rather small appearing apical pneumothorax with no significant change in the small amount of right pleural effusion, presumed to be hemothorax. IMPRESSION: Mr. Barton is an 87-year-old gentleman with multiple medical issues and comorbidities recently placed on hospice. He is a DNR/DNI. He unfortunately sustained a fall in his kitchen last night suffering a multiple rib fractures on the right as well as a small pneumothorax with a presumed small hemothorax. The abdomen and pelvis CT show a large amount of acidic fluid ; however, a large amount of free fluid without evidence of visceral injury or free air. However, in talking with his daughter, he has had longstanding ascites and this appears to be chronic and not an acute finding such as hemoperitoneum. He presently is comfortable on oxygen at rest. His main complaint is the right - sided chest wall discomfort from the rib fractures. Laboratory workup included a normal white blood cell count with hemoglobin of 9.8, platelet count of 102,000. BUN and creatinine are 70 and 2.01, which shows slightly up from the last values done in January. INR was not obtained. The patient is presently on hospice and DNR. I had a long discussion with the patient and his daughter, who was present in the emergency room today. I emphasize the significance and severity of this injury,which includes multiple rib fractures in an 87-year-old gentleman. All things considered, if he was a healthier gentleman not on hospice and a DNR, then I would recommend transfer to a higher level of care for level 1 trauma center for care of these significant injuries as he is significant morbidity and mortality from this injury. At this point; however, to remain on hospice and in accordance with his wishes he would not like to be transferred to a higher level of care. He would like to remain on hospice with continued supportive care. He is comfortable with this and after discussion with Dr. Gonsalez from the hospitalist service, he will be admitted to the 4th floor for management that will include analgesia with narcotic pain medicine, pulmonary toilet. He is not a candidate for intensive care unit admission due to his hospice status, which he wants to maintain. Once again, I emphasized to both him and his daughter, there is significant morbidity and mortality from this injury and she is aware of this. As far as his pneumothorax is concerned, this does not appear to have changed. On the chest x-ray, it appears to be somewhat smaller on a repeat plain film, which is a better quality study. He seems to be saturating well. He is hemodynamically stable. At this point, I prefer not to place a chest tube or pneumothorax catheter and follow him closely. A chest tube has been approved by hospice and if there is a worsening in the size of the pneumothorax on serial chest x-rays or change in his clinical status warranting chest tube placement, this will be done and I discussed all of this with him and his daughter. Thank you for your consultation. We will follow him closely with you. [id number]/[facility] #: [id number] NINA
[2017-04-03] MEDS: Pregabalin CAP(*) 25 MG PO SCH ×2 (11:01→22:14)
[2017-04-03] MEDS: Atorvastatin* 80 MG TAB PO SCH (11:02)
[2017-04-03] MEDS: Potassium Chlor TAB* 10 MEQ TAB.ER PO SCH (11:02)
[2017-04-03] MEDS: Levothyroxine TAB* 25 MCG TAB PO SCH (11:02)
[2017-04-03] MEDS: Lidocaine PATCH 5%* 1 PATCH TRANSDERM SCH (11:03)
[2017-04-03] MEDS: Carvedilol TAB* 6.25 MG PO SCH ×2 (11:03→22:16)
[2017-04-03] MEDS: Furosemide TAB* 20 MG PO SCH (11:03)
--- NOTE | 2017-04-03 12:12 | HP ---
CC: Dr. Santos; Dr. Thelma Madrigal; Dr. Hernandez; Dr. Rosa; Dr. Buck. * HISTORY AND PHYSICAL: DATE OF ADMISSION: 04/03/17. PRIMARY CARE PROVIDER: Dr. Santos. CHIEF COMPLAINT: Status post fall and right chest pain. HISTORY OF PRESENT ILLNESS: Mr. Bret Barton is an 87-year-old male who was just sent on home hospice a week ago for history of chronic systolic CHF and as well as ascites, pericardial effusion, and chronic kidney disease, who presented today after a mechanical fall. Patient stated that he bent down to pick a pill that he dropped on the floor; when he stood up, he got dizzy and he fell down. He fell on the right side of his body and suffers from a severe right chest pain. When he came in for evaluation, his initial CT of the abdomen and pelvis showed multiple rib fractures on the right with possibility of hemopneumothorax on the right. Patient also has significant ascites and pericardial effusion that could be nearing tamponade. The patient was evaluated by Dr. Buck from Surgery and noted not to in any need of a chest tube for the time being. Due to the patient being on current hospice orders, there was a discussion between hospice nurse and Dr. Manzano the nighttime hospitalist. The hospice nurse agreed for the patient to be admitted on hospice in the hospital. Patient wishes to be comfort care and he does not want to be transferred to a tertiary care center for further trauma evaluation and treatment. He would consent to a chest tube if that were to become necessary and from my communication with Dr. Manzano , the hospice nurse agreed that the patient may receive a chest tube under the hospice care services at the hospital. He is going to be admitted for comfort, care orders to hospice to the hospital with Dr. Buck from Surgery as a new home sales consultant. PAST MEDICAL HISTORY: 1. History of multiple myeloma in remission. 2. History of atrial fibrillation on anticoagulation with Pradaxa. 3. Coronary disease. 4. History of chronic kidney disease stage 3. 5. Peripheral vascular disease status post recent angioplasty in the lower extremity performed by Dr. Samayoa. 6. History of TIA. 7. History of bilateral lower extremity neuropathy. 8. History of gastroesophageal reflux disease. 9. History of systolic CHF currently with an EF of 35%. 10. Status post pacemaker/ICD placement. 11. Cataract surgery. 12. History of GI bleed noted in September 2016 while on anticoagulation. 13. Patient has chronic hypoxemic respiratory failure due to CHF, on oxygen at 2 L continuously. CURRENT MEDICATIONS: Include: 1. Metolazone 5 mg every other day. 2. Pradaxa 75 mg b.i.d. 3. Iron complex 150 mg daily. 4. Furosemide 40 mg daily. 5. Vitamin D3 at 1000 units daily. 6. Coreg 6.25 mg b.i.d. 7. Lipitor 80 mg a day. 8. Potassium 20 mEq daily. 9. Protonix 40 mg b.i.d. 10. Levothyroxine 50 micrograms daily. 11. Lyrica 75 mg b.i.d. ALLERGIES: Include ALLOPURINOL, SPIRONOLACTONE, IV DYE. FAMILY HISTORY: Positive for mother with history of hypertension and diabetes. Father with history of tuberculosis. SOCIAL HISTORY: Patient lives alone. Quit smoking 50 years ago. His surrogate decision maker is his daughter. REVIEW OF SYSTEMS: Patient complained of dizziness just before falling down and the dizziness occurred after he bent down and stood up was probably also due to orthostasis. He complains of right-sided thoracic pain localized in the entire right chest, pleuritic, and worse with movement. He had not been coughing. The patient has a history of lower extremity wounds that have healed ever since his angioplasty in July with Dr. Samayoa. The patient lives independently, alone at home. The remaining 12 systems were reviewed with the patient and were otherwise negative. Please note that on 11/27/2016, patient was evaluated in the emergency department after a fall. He stated that the fall was mechanical. He sustained a laceration on his forehead that was Steri-Striped. PHYSICAL EXAMINATION GENERAL: This is a very pleasant 87-year-old male who is not in acute distress. Patient is alert, awake, and oriented x3. VITAL SIGNS: Blood pressure 144/74, heart rate of 67 and regular, respiratory rate of 20, oxygen saturation of 100% on 2 L of oxygen via nasal cannula, temperature 97.8. HEENT: The patient has Steri-Strips on his forehead that were applied 3 days ago after a fall. Eyes: Extraocular movements are intact. Pupils are equal, reactive to light and accommodation. Oropharynx clear. Mucosa moist. NECK: Supple. No JVD. No bruits bilaterally. RESPIRATORY: Decreased breath sounds in the right lung with crackles, crepitus noted. I could also hear on auscultation what appeared to be the sound of broken ribs rubbing against each other. The left chest auscultation is grossly clear with crackles at the base. CARDIOVASCULAR: Muffled heart sounds. Regular rate and rhythm. No murmur. ABDOMEN: Abdomen with moderate amount of ascites, soft, nontender. Bowel sounds are present in all 4 quadrants. EXTREMITIES: There is no edema. Pulses are fully palpable in the right foot and not obtainable in the left foot. The patient has venous stasis, brownish discoloration of bilateral lower extremities. There is good capillary refill and no cyanosis in bilateral feet, but there is peripheral cyanosis in fingers of bilateral hands. NEUROLOGIC EVALUATION: Speech is clear. Cranial nerves II through XII grossly intact. Motor strength is 5/5 bilaterally. SKIN: Patient has a laceration on the forehead with Steri-Strips from 3 days ago when he fell. PSYCHIATRIC EVALUATION: Oriented x3. A very pleasant and cooperative with no evidence of anxiety or depression. LABORATORY DATA: Show a white blood cell count of 9.7, hemoglobin 9.8, hematocrit 30, MCV 101, platelets 102. Sodium of 139, potassium 3.9, chloride 103, carbon dioxide 26, BUN 17, creatinine 2.01. Liver function tests were obtained on the 7th of this month and were unremarkable. CT of the abdomen and pelvis: Impression: "Right-sided pneumothorax, rib fractures and effusion. Please refer to the separate CT chest report. Moderate ascites. Bladder diverticulum. Sigmoid diverticulum." Chest CT. Impression: "Multiple right-sided rib fractures that may result in a flail chest. Moderate sized right pneumothorax without mediastinal shift. Moderate sized right-sided pleural effusion with mild right possibly atelectasis. Cardiomegaly with large pericardial effusion. COPD." Right shoulder x-ray. Impression: "Rotator cuff tear. No acute findings." The patient had a repeat chest x-ray obtained 3 to [address] of the chest showed. Impression: "Right-sided rib fractures and pneumothorax unchanged. Enlarged cardiac silhouette, right-sided effusion. No interval changes." ASSESSMENT AND PLAN: Mr. Barton is an 87-year-old male with history of chronic kidney disease as well as chronic congestive heart failure with chronic ascites and pericardial effusion who was deemed not to be a good candidate for dialysis and was placed on home hospice a week ago. Patient presented after a fall with a flail chest on the right side. Multiple fractured ribs resulting in hemopneumothorax. 1. In regards to patient's hemopneumothorax, it was offered to the patient that he could rescind hospice and be transferred to a tertiary care center for further evaluation of his trauma. Patient is not interested in that. He would like to be kept comfortable, but by keeping comfortable means that he can receive a chest tube if his pneumothorax becomes uncontrolled, he would consent to that. His daughter who is his surrogate is in the room and agrees with that. At this point, patient is going to be placed on inpatient hospice. He prefers not to have IV access and p.o. morphine is going to be utilized. Dr. Buck will follow with the patient from the surgery standpoint and recommended a repeat chest x-ray in the morning tomorrow to reevaluate the patient's pneumothorax. Patient is going to be given incentive spirometry. 2. In regards to patient's chronic conditions with congestive heart failure, the patient is going to be continued on oxygen supplementation as well as Lasix and Zaroxolyn as previously taken. 3. In regards to patient's history of atrial fibrillation, his Pradaxa is going to be held due to his recent trauma. He is going to be continued on Coreg as above mentioned. 4. For his hypothyroidism, his Synthroid is going to be continued. 5. For patient's pericardial effusion, nearing tamponade, appears to be chronic comparing with prior chest x-rays. At this point, patient will be continued on comfort care. 6. For DVT prophylaxis. Not applicable as the patient is on comfort care. 7. Code status. Patient is do not resuscitate, in hospice. TIME SPENT: Approximately 72 minutes was spent on admission of this patient; more than half the time was spent with [id number] with the patient doing the interview and physical exam. [id number]/[facility] #: [id number] [facility] MEDICAL CENTERLaurence
[2017-04-03] MEDS ORDERED: DICLOFENAC 1% TOPICAL PRN (12:33)
[2017-04-03 19:33] LABS: Urine Bacteria Absent (Absent); Urine Bilirubin Negative (Negative); Urine Glucose Negative (Negative); Urine Nitrite Negative (Negative)
[2017-04-03] MEDS: Omeprazole CAP* 20 MG PO SCH (22:16)
[2017-04-03] MEDS: Lidocaine Patch REMOVE* 1 NOTE MISC SCH (23:06)
[2017-04-04] MEDS: Morphine ORAL CONCENTRATE* 5 MG/0.25 ML ORAL.SYRIN PO PRN ×4 (06:05→23:12)
[2017-04-04] MEDS: Acetaminophen SUPP* 650 MG SUPP PR PRN ×2 (07:04→21:47)
[2017-04-04] MEDS: Levothyroxine TAB* 25 MCG TAB PO SCH (07:05)
--- NOTE | 2017-04-04 07:44 | PN ---
Progress Note - Progress Note Date of Service: 04/04/17 SOAP: Subjective: Slept OK last night Main complaint is right posterior rib pain, mucous build up in throat No change in breathing Objective: No recent vitals Awake and alert-pleasant/comfortable Lungs-decreased breath sounds throughout bilaterally-slight decrease on right. No crepitance noted CXR 04/04--small right apical PTX-appears smaller than yesterday--no significant effusion, hemothorax Assessment: Right PTX/Rib fractures s/p fall--appears stable Remains on hospice due to multiple medical issues Plan: I don't feel he needs chest tube at this point-pneumothorax is apical and no significant fluid accumulation; no significant change in CXR from yesterday. He appears to be doing as well as possible considering severity of injury. Hospice care Pulmonary toilet/liberal use of analgesia Will continue to follow
--- NOTE | 2017-04-04 08:07 | RAD ---
INDICATION: Pneumothorax COMPARISON: April 03, 2017 TECHNIQUE: An AP portable view obtained at 0612 hours is submitted. FINDINGS: Bones/Soft Tissues: There are no acute bony findings. There are multiple right-sided rib fractures which well evaluated on earlier CT imaging. Cardiomediastinal: The correct silhouette remains enlarged. There is left-sided cardiac pacemaker/defibrillator Lungs: Basilar airspace disease with worsening aeration in the left lung base. Small right-sided pneumothorax, unchanged Pleura: Bilateral pleural effusions. Suspect increased pleural fluid on the left. Other: None IMPRESSION: Bibasilar airspace disease with mild worsening left lung base. Right-sided pneumothorax, unchanged. The remainder of the examination is unchanged.
[2017-04-04] MEDS ORDERED: Amoxicillin/Clavulanate TAB* 500 MG PO SCH (09:00)
--- NOTE | 2017-04-04 09:19 | PN ---
Subjective Date of Service: 04/04/17 Interval History: Pt was confused at night. Now feels "calm and better". coughing frequently Objective Active Medications: Acetaminophen (Tylenol Supp*) 650 mg NJ Q6H PRN PRN Reason: FEVER/PAIN Last Admin: 04/04/17 07:04 Dose: 650 mg Amoxicillin/Clavulanate Potassium (Augmentin Susp*) 400 mg PO BID [facility] Atorvastatin Calcium (Lipitor*) 80 mg PO DAILY [facility] Last Admin: 04/03/17 11:02 Dose: 80 mg Carvedilol (Coreg Tab*) 6.25 mg PO BID [facility] Last Admin: 04/03/17 22:16 Dose: 6.25 mg Diclofenac Sodium (Voltaren 1% Gel (Nf)) 1 applic TOPICAL TID PRN PRN Reason: PAIN - ARTHRITIS Last Admin: 04/03/17 15:48 Dose: 1 applic Furosemide (Lasix Tab*) 40 mg PO 1200 [facility] Last Admin: 04/03/17 11:03 Dose: 40 mg Levothyroxine Sodium (Synthroid Tab*) 50 mcg PO DAILY@0600 [facility] Last Admin: 04/04/17 07:05 Dose: Not Given Lidocaine (Lidoderm 5% Patch*) 2 patch TRANSDERM DAILY [facility] Last Admin: 04/03/17 11:03 Dose: 2 patch Metolazone (Zaroxolyn Tab*) 5 mg PO Q48H [facility] Morphine Sulfate (Morphine Oral Concentrate*) 5 mg PO Q2H PRN PRN Reason: PAIN Omeprazole (Prilosec Cap*) 20 mg PO BID [facility] Last Admin: 04/03/17 22:16 Dose: 20 mg Pharmacy Profile Note (Lidocaine Patch Remove*) 1 note N/A 2100 [facility] Last Admin: 04/03/17 23:06 Dose: 1 note Potassium Chloride (Klor Con Er Tab*) 20 meq PO DAILY@1200 [facility] Last Admin: 04/03/17 11:02 Dose: 20 meq Pregabalin (Lyrica Cap(*)) 75 mg PO BID [facility] Last Admin: 04/03/17 22:14 Dose: 75 mg Temazepam (Restoril Cap*) 15 mg PO BEDTIME PRN PRN Reason: INSOMNIA Vital Signs 04/03/17 04/03/17 04/03/17 10:22 10:34 11:01 Temperature 97.9 F Pulse Rate 71 Respiratory 16 16 18 Rate Blood Pressure 117/59 (mmHg) O2 Sat by Pulse 93 Oximetry 04/03/17 04/03/17 04/03/17 11:04 15:18 15:44 Temperature Pulse Rate Respiratory 18 15 18 Rate Blood Pressure (mmHg) O2 Sat by Pulse Oximetry 04/03/17 04/03/17 04/03/17 18:17 18:20 20:00 Temperature Pulse Rate Respiratory 15 18 18 Rate Blood Pressure (mmHg) O2 Sat by Pulse Oximetry 04/03/17 04/03/17 04/03/17 20:08 22:14 22:16 Temperature Pulse Rate Respiratory 18 20 20 Rate Blood Pressure (mmHg) O2 Sat by Pulse Oximetry 04/03/17 04/04/17 04/04/17 23:35 00:51 06:04 Temperature 101.3 F Pulse Rate Respiratory 18 16 Rate Blood Pressure (mmHg) O2 Sat by Pulse Oximetry 04/04/17 04/04/17 04/04/17 06:05 07:16 08:06 Temperature 100.5 F Pulse Rate Respiratory 10 16 Rate Blood Pressure (mmHg) O2 Sat by Pulse Oximetry 04/04/17 08:16 Temperature Pulse Rate Respiratory 16 Rate Blood Pressure (mmHg) O2 Sat by Pulse Oximetry Oxygen Devices in Use Now: Nasal Cannula Appearance: 87 yo M in NAD, aAOx3 Eyes: No Scleral Icterus, PERRLA Ears/Nose/Mouth/Throat: NL Teeth, Lips, Gums, Mucous Membranes Moist Neck: NL Appearance and Movements; NL JVP, Trachea Midline Respiratory: - - R lung aeration improved, crepitus noted on R lung asculation Cardiovascular: NL Sounds; No Murmurs; No JVD, RRR Abdominal: - - distended with moderate ascites Extremities: No Edema, No Clubbing, Cyanosis, - - very poor pedal pulses, no cyanosis Skin: No Rash or Ulcers, No Nodules or Sclerosis Neurological: Alert and Oriented x 3, NL Muscle Strength and Tone Result Diagrams: 04/03/17 04:17 04/03/17 04:17 Assess/Plan/Problems-Billing Assessment: 6 yo M with h/o MM in remission, cardiomyopathy, on 02 at 2 L continuously, A. fib on Pradaxa, pacer, CKD stage 3, PAD who was on hospice at home, fell and suffered from R pneumothorax and fail chest - Patient Problems (1) Pneumothorax Comment: On right and rib fractures due to fall. Pt had been febrile overnight. Suspect he is developing pneumonia from the flail R chest Will start liquid PO Augmentin (2) CKD (chronic kidney disease) stage 3, GFR 30-59 ml/min Comment: Creatinine within baseline. (3) Atrial fibrillation Comment: Currently in SR. Pradaxa held for chest trauma and possible hemothorax cont carvedilol. (4) PAD (peripheral artery disease) Comment: poor peripheral pulses noted (5) CHF (congestive heart failure) Comment: chronic, no exacerbation cont Lasix/Zaroxolyn Pt has marked pericardial effusion and ascites-both chronic Status and Disposition: inpatient hospice. ICD was turned off by Dr. Dillard. Plan to d/c pt home with daughters tomorrow
[2017-04-04] MEDS ORDERED: Senna TAB PO PRN (09:46)
[2017-04-04] MEDS ORDERED: Docusate LIQ* 100 MG/10 ML UDC PO PRN (09:46)
[2017-04-04] MEDS ORDERED: Lidocaine 4% GEL* 10 GM TUBE TOPICAL PRN (10:04)
[2017-04-04] MEDS: Lidocaine PATCH 5%* 1 PATCH TRANSDERM SCH (10:16)
[2017-04-04] MEDS: Amoxicillin/Clavulanate SUSP* BTL PO SCH ×2 (10:16→19:55)
[2017-04-04] MEDS: Pregabalin CAP(*) 25 MG PO SCH ×3 (10:26→19:55)
[2017-04-04] MEDS: Omeprazole CAP* 20 MG PO SCH ×3 (10:27→19:55)
[2017-04-04] MEDS: Carvedilol TAB* 6.25 MG PO SCH ×3 (10:27→19:55)
[2017-04-04] MEDS ORDERED: Ondansetron ODT TAB* 4 MG PO PRN (11:19)
[2017-04-04] MEDS: Atorvastatin* 80 MG TAB PO SCH (11:26)
[2017-04-04] MEDS: Furosemide TAB* 20 MG PO SCH ×2 (12:52→14:35)
[2017-04-04] MEDS: Potassium Chlor TAB* 10 MEQ TAB.ER PO SCH ×2 (12:53→14:36)
[2017-04-04 13:03] VITALS: BP 100/48
--- NOTE | 2017-04-04 18:28 | CONS ---
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 He came in with significant right pain and his workup in the emergency room showed multiple rib fractures on the right with possibility of a hemopneumothorax on the right. Of note, the patient came to the emergency room on the evening of after having a fall, had head CT which was unremarkable, and Steri- Strips to his scalp where he had several lacerations. The patient was admitted as an inpatient hospice, and placed on comfort care measures. On my encounter, the patient is awake, he falls asleep frequently, his daughter from out of town from [place] is present. They are waiting for the other daughter, Chandni, who is local to arrive, and Eddie from [facility] as well. The patient has had a little p.o. intake. He does have intermittent nausea. He is denying any pain. He has not gotten out of bed since his admission and feels that he will never be able to get out of bed again. He was living at home alone. Once the daughter arrives, we will discuss discharge placement as there is a bed available at the residence, and this may be a viable option for him. We did review his MOLST form as our MOLST form was from September showing a trial of intubation. He modified this to be a DNR/DNI comfort measures only and no further re-hospitalization. The patient states he feels like he needs to urinate, but has not been able to do so. Otherwise remaining review of systems is negative. PAST MEDICAL HISTORY: 1. As mentioned, the patient at home with hospice secondary to chronic systolic heart failure, most recent EF of 35%, complicated by ascites, pericardial effusion. 2. CKD. 3. History of atrial fibrillation. 4. History of peripheral vascular disease, status post angioplasty. 5. History of TIA. 6. History of bilateral lower extremity adenopathy. 7. GERD. 8. Status post pacemaker ICD placement. 9. History of cataract surgery. 10. History of GI bleed requiring admission in September 2016. 11. Chronic hypoxic respiratory failure, on 2 L continuously. MEDICATIONS: Inpatient medications include: 1. Tylenol 650 mg every 6 hours as needed. 2. Augmentin 400 mg p.o. b.i.d. 3. Atorvastatin 80 mg daily. 4. Carvedilol 6.25 mg p.o. b.i.d. 5. Diclofenac topical t.i.d. as needed. 6. Lasix 40 mg p.o. daily. 7. Synthroid 50 mcg daily. 8. Lidoderm patch transdermally 2 patches applied daily to affected area. 9. Metolazone 5 mg p.o. q.48 hours. 10. Morphine 5 mg p.o. q.2 hours as needed. 11. Omeprazole 20 mg p.o. b.i.d. 12. Potassium chloride 20 mEq daily. 13. Lyrica 75 mg p.o. b.i.d. 14. Temazepam 15 mg p.o. at bedtime as needed. ALLERGIES: ALLOPURINOL, NEXIUM, CONTRAST, SPIRONOLACTONE. FAMILY HISTORY: Reviewed and noncontributory. SOCIAL HISTORY: As mentioned, the patient lives at home alone. He has a local daughter, Chandni, who is his healthcare proxy that is very involved with his care. He quit smoking 50 years ago. No alcohol use or illicit drug use. He retired from a [employer] company. MOLST form is DNR/DNI, comfort measures only. REVIEW OF SYSTEMS: Fourteen-point review of systems reviewed, pertinent positives and negative as mentioned in the HPI, otherwise negative. PHYSICAL EXAM: Vitals: T-max 101.3, pulse rate is 63, respiratory rate is 16, oxygen saturation 93% on 3 L, blood pressure 117/59. General: The patient falling asleep intermittently. He is pale, cyanotic appearing. Pupils equal, reactive, and anicteric. Oropharynx: Mucous membranes moist. Neck: Supple. No lymphadenopathy. Head: He has 2 to 3 lacerations on his scalp, covered by Steri- Strips, no active bleeding. Cardiac: Irregularly irregular rate and rhythm with harsh systolic murmur most prominent at the right sternal base. Respiratory: Rhonchorous breath sounds, diminished breath sounds, crepitus noted. Abdomen: Distended. Fluid wave noted, nontender. Extremities: Trace pretibial edema, chronic hemosiderin changes. Neurologic: Alert and oriented x3. No gross focal neurologic deficits. DIAGNOSTIC STUDIES/LAB DATA: White count 9.7, hemoglobin 9.8, hematocrit 30, platelets 102. Sodium 139, potassium 3.9, chloride 103, bicarb 26, BUN 70, creatinine 2. Radiographic data: Chest x-ray, bibasilar airspace disease with mild worsening left lung base, right-sided pneumothorax, unchanged. ASSESSMENT AND PLAN: This is an 87-year-old male with past medical history of chronic systolic heart failure complicated by pericardial effusion, ascites, and chronic kidney disease, who presented to the emergency room on 04/03/17 after falling, suffering severe right chest pain, found to have multiple rib fractures, right-sided pneumothorax, and effusion. Surgery was consulted initially as the patient did not want to rescind his hospice and go to a tertiary care center. They did not feel that the chest tube would improve symptoms and recommendation was to monitor closely. If his symptoms worsen, to consider chest tube placement. The patient currently appears comfortable. There is some concern for urinary retention. We will obtain a bladder scan q.6 hours and start him on a bowel regimen with his morphine. Discontinue his Lipitor, and we will make sure his ICD has been turned off and I will follow up with the daughter when she arrives regarding disposition planning and if the hospice residence is something that they would be interested in pursuing. Currently, his pain seems adequately controlled. Thank you for this consultation. I will follow along with you. PATIENT TIME: Greater than 90 minutes was spent doing the consultation, more than half the time was spent in direct patient contact. [id number]/[facility] #: [id number] NINA
[2017-04-04] MEDS: Lidocaine Patch REMOVE* 1 NOTE MISC SCH ×2 (19:15→22:12)
[2017-04-05] MEDS: Morphine ORAL CONCENTRATE* 5 MG/0.25 ML ORAL.SYRIN PO PRN ×3 (01:09→09:17)
[2017-04-05] MEDS: Levothyroxine TAB* 25 MCG TAB PO SCH (05:37)
[2017-04-05] MEDS ORDERED: Metolazone TAB* 5 MG PO SCH (08:30)
[2017-04-05] MEDS ORDERED: Morphine ORAL CONCENTRATE* 5 MG/0.25 ML ORAL.SYRIN PO PRN (09:55)
[2017-04-05] MEDS: Amoxicillin/Clavulanate SUSP* BTL PO SCH (10:17)
[2017-04-05] MEDS: Carvedilol TAB* 6.25 MG PO SCH (10:17)
[2017-04-05] MEDS: Omeprazole CAP* 20 MG PO SCH (10:18)
[2017-04-05] MEDS: Pregabalin CAP(*) 25 MG PO SCH (10:18)
[2017-04-05] MEDS: Lidocaine PATCH 5%* 1 PATCH TRANSDERM SCH (10:57)
[2017-04-05] MEDS ORDERED: Morphine ORAL CONCENTRATE* 5 MG/0.25 ML ORAL.SYRIN SL ONE (12:00)
[2017-04-05] MEDS: Potassium Chlor TAB* 10 MEQ TAB.ER PO SCH (12:02)
[2017-04-05] MEDS: Furosemide TAB* 20 MG PO SCH (12:02)
[2017-04-05] MEDS ORDERED: Amoxicillin/Clavulanate SUSP* BTL PO SCH (21:00)
--- NOTE | 2017-04-06 04:24 | DS ---
CC: Dr. Santos; Dr. Madrigal; Dr. Hernandez; Dr. Buck; Dr. Rosa; Dr. Lee * DISCHARGE SUMMARY: DATE OF ADMISSION: 04/03/17 DATE OF DISCHARGE: 04/05/17 PRIMARY CARE PROVIDER: Dr. Santos DISCHARGE DIAGNOSIS: Right-sided hemopneumothorax and right-sided flail chest due to trauma status post fall. SECONDARY DIAGNOSES: 1. History of chronic kidney disease stage 3 with ascites and pericardial effusion refractory to diuresis. 2. History of multiple myeloma in remission. 3. History of atrial fibrillation, chronic. 4. History of coronary artery disease. 5. Peripheral vascular disease. 6. Bilateral lower extremity neuropathy. 7. History of systolic congestive heart failure with an ejection fraction of 35 %. 8. Pacemaker with ICD placement. Please note that ICD was turned off during the patient's hospital stay. 9. History of gastrointestinal bleed noted in September 2016 while on Pradaxa. 10. History of chronic hypoxemic respiratory failure due to congestive heart failure with oxygen at 2 to 4 L continuously. MEDICATIONS AT DISCHARGE: Include: 1. Augmentin liquid 400 mg p.o. b.i.d. 3. Lipitor 80 mg daily. 4. Coreg 6.25 mg b.i.d. 5. Vitamin D3 at 1000 units daily. 6. Furosemide 40 mg daily. 7. Niferex 150 mg daily. 8. Synthroid 50 mcg daily. 9. Metolazone 5 mg every other day. 10. Morphine oral concentrate 3 mg every 2 hours p.r.n. 11. Protonix 40 mg b.i.d. 12. Potassium chloride 20 mEq daily. 13. Lyrica 75 mg p.o. b.i.d. 14. Voltaren gel apply topically to affected areas. LABORATORY DATA: Studies performed during the hospital stay were mentioned in my history and physical at admission. CONSULTATIONS DURING THE HOSPITAL STAY: Included: Dr. Lee from Palliative Care and Dr. Buck from Surgery. HOSPITALIZATION COURSE: Bret Barton is an 87-year-old male who was placed on home hospice due to chronic kidney disease and CHF as well as ascites and pericardial effusion that was refractory to diuresis. The patient was not a good candidate for hemodialysis at that point and he chose to be placed on home hospice. He got dizzy when he was bending down. He fell and suffered multiple fractures of the right ribs. He also was noted to have a small to moderate right-sided pneumothorax and possibility of hemopneumothorax. Dr. Buck saw the patient in consultation and followed the patient for the initial couple of days in regards to chest tube placement. It was noted that the patient's pneumothorax did not increase and the patient's chronic hypoxemia did not worsen significantly. Chest tube at that point not recommended and indicated. The patient started getting febrile and likely posttraumatic pneumonia developed in the right lung and that was treated with Augmentin. The patient refused to have an IV access placed during this hospital stay and he was treated mostly with morphine for comfort and Augmentin as the antibiotic treatment. Please also note the patient was continued on hospice while on hospital stay. The patient is being discharged to home hospice today under the care of his daughter. He was offered a hospice residence, but his daughter preferred to take him home for his last days. PHYSICAL EXAM: At the time of discharge, blood pressure of 100/48, heart rate of 66 and regular, respiratory rate 16, oxygen saturation 86% on room air, temperature of 99.9. General: The patient is a very pleasant 87-year-old male who is sedated on morphine but occasionally pretty lucid, able to communicate with me. He remembers me and he is able to converse about the book that we both read. He is oriented to time. He knows that he is in the hospital and recognizes the family members in the room. HEENT: Head: Atraumatic, normocephalic. Eyes: Pupils are equal, reactive to light and accommodation. Oropharynx clear. Mucosa dry. Neck: Supple. No JVD. No bruits bilaterally. Cardiovascular: Regular rate and rhythm, no murmur. Respiratory: Decreased breath sounds at the bilateral bases with crackles and mild crepitus noticed on the right lung evaluation. Abdomen: Soft. Ascites present, nontender. Bowel sounds present in all 4 quadrants. Extremities with poor peripheral pulses. No clubbing or cyanosis noted. On evaluation of the skin, the patient has multiple abrasions on his scalp with Steri-strips in place after a fall prior to this current fall. The patient is going to be continued on comfort care. His medications are going to be continued as tolerated with recommendations for the patient's family that it is okay if he is unable to take pills. He is going to be continued on morphine oral concentrate which the patient family has already at home as well as Augmentin if tolerated. Hospice will follow up with the patient at home. Please note that this is a short summary of the patient's hospital stay. Please refer to further medical records for details. TIME SPENT: Approximately 40 minutes was spent on the patient's discharge. [id number]/[facility] #: [id number] MTDLaurence
--- NOTE | 2017-04-11 21:50 | ED ---
Mecca Baca Emily, scribed for Kush John MD on 04/03/17 at 0145 . Upper Extremity Pain - HPI Summary HPI Summary: This patient is an 87 year old M BIBA to [facility] accompanied by family with a chief complaint of R shoulder radiating to back that began s/p fall from standing earlier today. Pt denies head injury and LOC. The patient rates the pain 8/10 in severity. Symptoms aggravated by deep breaths and movement. Symptoms alleviated by nothing. Patient reports inability to move RUE. - History of Current Complaint Chief Complaint: EDExtremityUpper Stated Complaint: FALL Time Seen by Provider: 04/03/17 01:08 Hx Obtained From: Patient, EMS Mechanism Of Injury: Fall From A Standing Position Pain Location: Shoulder Aggravating Factor(s): Movement, Other - Deep Breaths Alleviating Factor(s): Nothing - Allergies/Home Medications Allergies/Adverse Reactions: Allergies Allergy/AdvReac Type Severity Reaction Status Date / Time Allopurinol [From Zyloprim] Allergy Intermediate Rash Verified 04/03/17 00:36 Esomeprazole [From Nexium] Allergy Intermediate Rash Verified 04/03/17 00:36 Iodinated Diagnostic Agents Allergy See Comment Verified 04/03/17 00:36 Spironolactone Allergy Unknown Verified 04/03/17 00:36 Reaction Details IV dye Allergy Fever Uncoded 04/03/17 00:36 PMH/Surg Hx/FS Hx/Imm Hx Previously Healthy: No Endocrine/Hematology History: Reports: Hx Anticoagulant Therapy - PRADAXA, Hx Anemia - LOW IRON ON MEDICATION Denies: Hx Diabetes Cardiovascular History: Reports: Hx Auto Implanted Cardiovert Defib - BY DR BHANDARI/BERTHA AT [facility], Hx Congestive Heart Failure - OXYGEN 2 LITERS VIA N/C CONTINOUSLY, Hx Coronary Artery Disease, Hx Pacemaker/ICD, Hx Valvular Heart Disease - TRICUSPID INSUFFICENCY, Other Cardiovascular Problems/Disorders - CHF Denies: Hx Hypertension, Hx Syncope - NEAR SYNCOPE Comment Only: Hx Hypotension - TACHY-FABRICIO SYNDROME, AFIB. Respiratory History: Reports: Other Respiratory Problems/Disorders - OXYGEN AT 2 LITERS VIA NASAL CANNULA R/T CHF Denies: Hx Chronic Obstructive Pulmonary Disease (COPD) GI History: Reports: Hx Ulcer - duodenal ulcer, Other GI Disorders - DOUDINAL ULCERS, ON PROTONIX History: Denies: Hx Dialysis, Hx Renal Disease Musculoskeletal History: Reports: Hx Arthritis - BILATERAL HANDS AND FINGERS, Hx Orthopedic Injury - RIGHT FOOT BOOT Denies: Hx Back Problems Sensory History: Reports: Hx Contacts or Glasses - reading glasses Denies: Hx Cataracts, Hx Eye Injury, Hx Eye Prosthesis, Hx Glaucoma, Hx Legally Blind, Hx Macular Degeneration, Hx Vision Problem, Hx Deafness, Hx Hearing Aid, Hx Hearing Problem, Other Sensory Impairments Opthamlomology History: Reports: Hx Contacts or Glasses - reading glasses Denies: Hx Cataracts, Hx Eye Injury, Hx Eye Prosthesis, Hx Glaucoma, Hx Legally Blind, Hx Macular Degeneration, Hx Vision Problem, Other Sensory Impairments Neurological History: Reports: Hx Transient Ischemic Attacks (TIA) Denies: Hx Dementia, Hx Seizures - Cancer History Cancer Type, 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) Hx Chemotherapy: Yes - ORAL Hx Radiation Therapy: Yes - MULTIPLE MYLOMA 2001 - Surgical History Surgery Procedure, Year, and Place: PACEMAKER/DEFIBULATOR Hx Anesthesia Reactions: No Infectious Disease History: No Infectious Disease History: Denies: Hx of Known/Suspected MRSA, Hx Shingles, Hx Tuberculosis, History Other Infectious Disease, Traveled Outside the [place] in Last 30 Days - Family History Known Family History: Negative: Cardiac Disease - Social History Occupation: Retired Lives: Alone Alcohol Use: Occasionally Alcohol Amount: 1 beer per day Substance Use Type: Reports: None Smoking Status (MU): Former Smoker Type: Cigarettes Amount Used/How Often: 2 PPD FOR ABOUT 10 YEARS Length of Time of Smoking/Using Tobacco: 10 YEARS Have You Smoked in the Last Year: No Review of Systems Positive: Decreased ROM, Other - Positive R shoulder pain Negative: Syncope All Other Systems Reviewed And Are Negative: Yes Physical Exam - Summary Physical Exam Summary: Appearance: Acute distress Skin: Warm, Dry, No rash, healing laceration to the scalp Eyes: Normal, PERRL, EOMI, sclera anicteric ENT: Normal Neck: Supple, nontender Respiratory: breath sounds reduced at the right Cardiovascular: S1, S2, no murmur, no rub, no gallop, irregularly irregular rhythm Abdomen: Soft, nontender, no organomegaly Bowel sounds: Present Musculoskeletal: Normal, Strength/ROM Intact, no edema, pulses symmetrical, pain in R shoulder with motion, pain at the right shoulder blade primarily posterior ribs Neurological: Normal, A&Ox3, cranial nerves 2-12 wnl, follows commands, gait not tested, sensation intact to pin and light touch Psychiatric: affect normal, behavior appropriate, dressed appropriately, judgment intact Triage Information Reviewed: Yes Vital Signs On Initial Exam: Initial Vitals Temp Pulse Resp BP Pulse Ox 97.8 F 75 16 146/75 100 04/03/17 00:27 04/03/17 00:27 04/03/17 00:27 04/03/17 00:27 04/03/17 00:27 Vital Signs Reviewed: Yes - [place] Coma Scale Coma Scale Total: 15 Diagnostics - Vital Signs Vital Signs Temp Pulse Resp BP Pulse Ox 04/03/17 00:27 97.8 F 75 16 146/75 100 - Laboratory Lab Results: Lab Results 04/03/17 04/03/17 Range/Units 04:17 04:17 WBC 9.7 (3.5-10.8) 10^3/ul RBC 2.93 L (4.0-5.4) 10^6/ul Hgb 9.8 L (14.0-18.0) g/dl Hct 30 L (42-52) % MCV 101 H (80-94) fL MCH 34 H (27-31) pg MCHC 33 (31-36) g/dl RDW 19 H (10.5-15) % Plt Count 102 L (150-450) 10^3/ul MPV 11 H (7.4-10.4) um3 Neut % (Auto) 80.6 (38-83) % Lymph % (Auto) 8.9 L (25-47) % [place] % (Auto) 9.9 H (1-9) % Eos % (Auto) 0.4 (0-6) % Baso % (Auto) 0.2 (0-2) % Absolute Neuts (auto) 7.9 H (1.5-7.7) 10^3/ul Absolute Lymphs (auto) 0.9 L (1.0-4.8) 10^3/ul Absolute Monos (auto) 1.0 H (0-0.8) 10^3/ul Absolute Eos (auto) 0 (0-0.6) 10^3/ul Absolute Basos (auto) 0 (0-0.2) 10^3/ul Absolute Nucleated RBC 0 10^3/ul Nucleated RBC % 0 Sodium 139 (133-145) mmol/L Potassium 3.9 (3.5-5.0) mmol/L Chloride 103 (101-111) mmol/L Carbon Dioxide 26 (22-32) mmol/L Anion Gap 10 (2-11) mmol/L BUN 70 H (6-24) mg/dL Creatinine 2.01 H (0.67-1.17) mg/dL Est GFR ( Amer) 40.5 (>60) Est GFR (Non-Af Amer) 31.5 (>60) BUN/Creatinine Ratio 34.8 H (8-20) Glucose 87 (70-100) mg/dL Calcium 9.6 (8.6-10.3) mg/dL Result Diagrams: 04/03/17 04:17 04/03/17 04:17 Lab Statement: Any lab studies that have been ordered have been reviewed, and results considered in the medical decision making process. - Radiology Shoulder XR Radiology Interpretation Completed By: ED Physician - Shoulder XR read by ED physician reveals pneumothorax of the R lung CXR Radiology Interpretation Completed By: ED Physician - CXR read by ED physician reveals pneumothorax of the R lung. - CT Chest CT Interpretation Completed By: Radiologist - Chest CT read by radiologist reveals 3 cm thick pericardial effusion is large enough to cause pericardial tamponade. Multiple right rib fractures. Moderate size right hydropneumothrax without mediastinal shift. COPD. Incompletely seen ascites of uncertain etiology. ED physician has reviewed this radiology report and agrees. A/P CT Interpretation Completed By: Radiologist - CT A/P read by radiologist reveals moderate to large amount of ascites of uncertain cause. Right rib fractures. Please refer to seperate chest CT for marked intrathoracic pathology. ED physician has reviewed this radiology report and agrees. Course/Dx - Course Assessment/Plan: This patient is an 87 year old M BIBA to [facility] accompanied by family with a chief complaint of R shoulder radiating to back that began s/p fall from standing earlier today. Pt denies head injury and LOC. The patient rates the pain 8/10 in severity. Symptoms aggravated by deep breaths and movement. Symptoms alleviated by nothing. Patient reports inability to move RUE. Physical Exam Findings. Acute distress, pain in R shoulder with motion, pain at the right shoulder blade primarily posterior ribs, breath sounds reduced at the right, irregularly irregular rhythm, healing laceration to the scalp. Medical Decision Making. Shoulder XR read by ED physician reveals pneumothorax of the R lung. CXR read by ED physician reveals pneumothorax of the R lung. Chest CT read by radiologist reveals 3 cm thick pericardial effusion is large enough to cause pericardial tamponade. Multiple right rib fractures. Moderate size right hydropneumothrax without mediastinal shift. COPD. Incompletely seen ascites of uncertain etiology. We discussed patient care with Dr. Buck (surgery) and they recommended pt be admitted for further evaluation. Pt will be admitted. The patient is agreeable with this plan. - Diagnoses Provider Diagnoses: Multiple rib fractures, Possible hemopneumothorax, Possible hemoperitoneum, Pericardial effusion - Physician Notifications Discussed Care of Patient With: Dre Buck Time Discussed With Above Provider: 03:17 Instructed by Provider To: Other - Consult with Dr. Buck (surgery) at 0317. He agrees to admit pt for further observation. Discharge - Discharge Plan Condition: Guarded Disposition: ADMITTED TO [facility] The documentation as recorded by the Mecca engle Emily accurately reflects the service I personally performed and the decisions made by me, Kush Jhon MD.
== END 2017-04-05 12:00 | disposition hospice, home (50) | DRG 135 ==
LOC: ED 00:26 → MED 08:31
PROVIDERS: ADMIT Internal Medicine; ATTEND Internal Medicine
DX: S27.2XXA Traumatic hemopneumothorax, initial encounter (principal); S22.5XXA Flail chest, initial encounter for closed fracture; R18.8 Other ascites; J96.11 Chronic respiratory failure with hypoxia; I31.3 Pericardial effusion (noninflammatory); I48.2 Chronic atrial fibrillation; I50.22 Chronic systolic (congestive) heart failure; W18.30XA Fall on same level, unspecified, initial encounter; N18.3 Chronic kidney disease, stage 3 (moderate); K21.9 Gastro-esophageal reflux disease without esophagitis; I25.10 Atherosclerotic heart disease of native coronary artery without angina pectoris; I73.9 Peripheral vascular disease, unspecified; G57.93 Unspecified mononeuropathy of bilateral lower limbs; Y92.009 Unspecified place in unspecified non-institutional (private) residence as the place of occurrence of the external cause; Z99.81 Dependence on supplemental oxygen; Z85.89 Personal history of malignant neoplasm of other organs and systems; Z79.01 Long term (current) use of anticoagulants; Z79.899 Other long term (current) drug therapy; Z88.8 Allergy status to other drugs, medicaments and biological substances; Z91.041 Radiographic dye allergy status; Z83.3 Family history of diabetes mellitus; Z82.49 Family history of ischemic heart disease and other diseases of the circulatory system; Z82.5 Family history of asthma and other chronic lower respiratory diseases; Z87.891 Personal history of nicotine dependence; I87.8 Other specified disorders of veins; Z66 Do not resuscitate; Z95.810 Presence of automatic (implantable) cardiac defibrillator; Z99.3 Dependence on wheelchair; Z51.5 Encounter for palliative care
CPT/HCPCS: 36415; 71010; 71250; 74176; 80048; 81003; 81015; 85025; A9270-GY